=== PATIENT | female | born 1970 | race Caucasian/White ===

== ENCOUNTER 2017-02-22 12:48 | Emergency (ER) | payer SELFPAY ==
[~2017-02-22] VITALS: Ht 160 cm; Wt 52.0 kg
[~2017-02-22 12:48] MED LIST: IBUP800 PO; NAPR220T95 PO
[2017-02-22 12:49] VITALS: BP 109/73; PULSE 102; RESP 20; TEMP 97.9; O2SAT 98
--- NOTE | 2017-02-22 12:53 | PD ---
Physical Exam Date Seen by Provider: Feb 22, 2017 Time Seen by Provider: 12:52 Narrative 46 yo female here for right shoulder pain and chest pain on right. has had this since monday. Right chest pains going on for months. Hurts to move the shoulder. Tingling and numbness to the right arm. Pain is 8/10. Nothing makes it better. No trauma Vitals are stable in triage. Awaiting bed placement. Data Data Last Documented VS Vital Signs Date Time Temp Pulse Resp B/P Pulse Ox O2 Delivery O2 Flow Rate FiO2 02/22/17 12:49 97.9 102 20 109/73 98 Room Air [facility] Medical Record Reviewed: Yes Supervised Visit with EILEEN: No Td Beard Feb 22, 2017 12:53
[2017-02-22 12:57] VITALS: BP 120/62; PULSE 98; RESP 16; O2SAT 96
--- NOTE | 2017-02-22 13:36 | PD ---
HPI Chief Complaint: Cardiac Complaint Time Seen by Provider: 13:00 Travel History International Travel<30 days: No Contact w/Intl Traveler<30days: No Traveled to known affect area: No History of Present Illness HPI This is a 46-year-old female with a history of tobacco use, who presents today with complaints of right sided neck shoulder and arm pain since Monday. The patient reports the pain as sharp and stabbing. She reports it radiates down to her elbow area. She states that today she started feeling some tingling in her hand which brought her here. Patient also reports several months of right sided chest wall pain. She states it comes and goes. She denies any exertional component to it. She states that it lasts for up to a minute at worst. There is no shortness of breath. Patient states that about a month ago she had a cough. She denies a cough this time. As no reported fevers, chills. She states that she does not see doctors because she cannot afford to see one. He has no idea whether she has high cholesterol, diabetes or high blood pressure. Her blood pressure was noted to be normal here. She smokes one pack of cigarettes a day. PFSH Past Medical History Cardiovascular Problems: Yes Diminished Hearing: No Immunizations Current: No Tetanus Vaccination: < 5 Years Influenza Vaccination: No ?: Not Past Surgical History Section: Yes (X4) Gynecologic Surgery: Yes (C SECTIONS X4) Hysterectomy: No Social History Alcohol Use: Yes (OCCU) Tobacco Use: Yes (DAILY, [employer]) Substance Use: No Allergies-Medications (Allergen,Severity, Reaction): Coded Allergies: Milk (Verified Allergy, Severe, CANT BREATHE, 02/13/14) Reported Meds & Prescriptions Reported Meds & Active Scripts Active Medrol Dosepak (Methylprednisolone) 4 Mg Dspk 4 Mg PO DIRECTED Per Pharmacist direction Flexeril (Cyclobenzaprine HCl) 5 Mg Tab 5 Mg PO TID Reported Aleve (Naproxen Sodium) 220 Mg Tab 220 Mg PO BID Motrin 800 Mg Tab (Ibuprofen) 800 Mg Tab 800 Mg PO Q8 PRN Review of Systems Except as stated in HPI: all other systems reviewed are Neg General / Constitutional: No: Fever, Chills HENT: Positive: Neck Pain, No: Headaches, Vertigo, Lightheadedness Cardiovascular: Positive: Chest Pain or Discomfort (right sided. She reports it as a pressure and sharp at times. It comes and goes.), No: Palpitations Respiratory: No: Cough (one month ago,, not now.), Shortness of Breath, Pleuritic Pain Gastrointestinal: No: Nausea, Vomiting Genitourinary: No: Frequency, Dysuria Musculoskeletal: Positive: Pain (right lateral neck, right shoulder and right upper arm.), No: Weakness, Edema Neurologic: Positive: Sensory Disturbance (numbness and tingling of her right forearm and hand.), No: Weakness, Dizziness, Headache Physical Exam Narrative GENERAL: Well-developed well-nourished female in no acute respiratory distress. SKIN: Focused skin assessment warm/dry. HEAD: Atraumatic. Normocephalic. EYES: Pupils equal and round. No scleral icterus. No injection or drainage. ENT: No nasal bleeding or discharge. Mucous membranes pink and moist. NECK: Trachea midline. Supple. Patient has subjective tenderness in the paraspinous distribution of C5-C6 on the right side of the neck. There is no posterior spinous process tenderness. CARDIOVASCULAR: Regular rate and rhythm. No murmur appreciated. There is what appears to be a 3 x 2 cm lipoma on her anterior chest wall. It is squishy and mobile. It does not appear to be fixed. RESPIRATORY: No accessory muscle use. Clear to auscultation. Breath sounds equal bilaterally. GASTROINTESTINAL: Abdomen soft, non-tender, nondistended. MUSCULOSKELETAL: No obvious deformities. No clubbing. No cyanosis. No edema. NEUROLOGICAL: Awake and alert. No obvious cranial nerve deficits. Motor grossly within normal limits. Normal speech. PSYCHIATRIC: Appropriate mood and affect; insight and judgment normal. Data Data Last Documented VS Vital Signs Date Time Temp Pulse Resp B/P Pulse Ox O2 Delivery O2 Flow Rate FiO2 02/22/17 15:18 72 16 115/69 98 Room Air 02/22/17 12:49 97.9 Orders Electrocardiogram (02/22/17 13:21) Complete Blood Count With Diff (02/22/17 13:21) Comprehensive Metabolic Panel (02/22/17 13:21) Ckmb (Isoenzyme) Profile (02/22/17 13:21) Troponin I (02/22/17 13:21) Chest, Pa & Lat (02/22/17 13:21) Spine, Cervical - Ltd (Ap&Lat) (02/22/17 13:21) Iv Access Insert/Monitor (02/22/17 13:21) Ecg Monitoring (02/22/17 13:21) Oximetry (02/22/17 13:21) Ketorolac Inj (Toradol Inj) (02/22/17 15:00) Methylprednisolone So Succ Inj (Solumedr (02/22/17 15:00) Support Splint (02/22/17 15:34) Labs Laboratory Tests Test 02/22/17 13:00 White Blood Count 8.7 TH/MM3 Red Blood Count 4.70 MIL/MM3 Hemoglobin 14.6 GM/DL Hematocrit 42.8 % Mean Corpuscular Volume 91.1 FL Mean Corpuscular Hemoglobin 31.1 PG Mean Corpuscular Hemoglobin 34.1 % Concent Red Cell Distribution Width 14.0 % Platelet Count 256 TH/MM3 Mean Platelet Volume 8.4 FL Neutrophils (%) (Auto) 65.2 % Lymphocytes (%) (Auto) 23.4 % Monocytes (%) (Auto) 7.9 % Eosinophils (%) (Auto) 3.2 % Basophils (%) (Auto) 0.3 % Neutrophils # (Auto) 5.6 TH/MM3 Lymphocytes # (Auto) 2.0 TH/MM3 Monocytes # (Auto) 0.7 TH/MM3 Eosinophils # (Auto) 0.3 TH/MM3 Basophils # (Auto) 0.0 TH/MM3 CBC Comment DIFF FINAL Differential Comment Sodium Level 144 MEQ/L Potassium Level 3.9 MEQ/L Chloride Level 111 MEQ/L Carbon Dioxide Level 27.6 MEQ/L Anion Gap 5 MEQ/L Blood Urea Nitrogen 13 MG/DL Creatinine 0.71 MG/DL Estimat Glomerular Filtration 88 ML/MIN Rate Random Glucose 87 MG/DL Calcium Level 8.9 MG/DL Total Bilirubin 0.5 MG/DL Aspartate Amino Transf 11 U/L (AST/SGOT) Alanine Aminotransferase 14 U/L (ALT/SGPT) Alkaline Phosphatase 69 U/L Total Creatine Kinase 42 U/L Troponin I LESS THAN 0.02 NG/ML Total Protein 7.4 GM/DL Albumin 3.4 GM/DL [facility] Medical Decision Making Medical Screen Exam Complete: Yes Emergency Medical Condition: Yes Differential Diagnosis Cervical strain versus cervical radiculopathy versus atypical ACS Narrative Course 46-year-old female presents with right sided neck pain with radiation to her right upper extremity. Patient also reports some tingling in her right upper extremity. The patient has no palpable cords. There is no edema. The pain seems to radiate from her C4-C5 distribution. X-ray of the cervical spine shows degenerative disc disease at C4-C5 C5-C6 C6-C7. There is no evidence of step-off. The patient has no weakness on exam. EKG and cardiac enzymes are within normal limits. Chest x-ray shows no evidence of acute findings. I informed patient this is likely a "pinched nerve". She has no focal weakness. She'll be treated with a Medrol Dosepak and Flexeril. She is instructed to use Motrin [id number] 400-600 mg every 8 hours for the next 5 days. She will be given information on the [place] [facility]. Diagnosis Primary Impression: Cervical radiculopathy Additional Impression: Atypical chest pain Additional Instructions: Ibuprofen 400-600 mg every 8 hours 3-4 days. Take with food. Wear arm sling for comfort. Avoid overhead lifting. Med/Other Pt SpecificInfo: Prescription(s) given Scripts Methylprednisolone Dosepak (Medrol Dosepak)4 Mg Dspk4 Mg PO DIRECTED #1 DSPK Ref 0 Per Pharmacist direction Prov:Mohamud Velasco MD 02/22/17 Cyclobenzaprine (Flexeril)5 Mg Tab5 Mg PO TID #15 TAB Ref 0 Prov:Mohamud Velasco MD 02/22/17 Disposition: 01 DISCHARGE HOME Condition: Stable Mohamud Velasco MD Feb 22, 2017 13:36
--- NOTE | 2017-02-22 13:53 | RADRPT ---
EXAM DATE/TIME: 02/22/2017 13:43 [facility] COMPARISON: No previous studies available for comparison. INDICATIONS : Chest tightness. MEDICAL HISTORY : None. SURGICAL HISTORY : None. ENCOUNTER: Initial ACUITY: 4 - 6 days PAIN SCORE: 3/10 LOCATION: Bilateral chest FINDINGS: PA and lateral views of the chest demonstrate the lungs to be symmetrically aerated without evidence of mass, infiltrate or effusion. The cardiomediastinal contours are unremarkable. Osseous structure s are intact. CONCLUSION: No acute disease. Ernie Watters MD FACR on February 22, 2017 at 13:51 Board Certified Radiologist. This report was verified electronically.
--- NOTE | 2017-02-22 13:55 | RADRPT ---
EXAM DATE/TIME: 02/22/2017 13:45 [facility] COMPARISON: No previous studies available for comparison. INDICATIONS : Right sided neck pain. MEDICAL HISTORY : Radiculopathy SURGICAL HISTORY : None. ENCOUNTER: Initial ACUITY: 4 - 6 days PAIN SCORE: 8/10 LOCATION: Right neck FINDINGS: AP, lateral, and open mouth odontoid views were obtained. There is moderate to severe degenerative sp ondylosis of the cervical spine most prominently at C4-5, C5-6, and C6-7 with significant disc space narrowing and anterior osteophyte formation. There is resultant loss of normal cervical lordosis alth ough sagittal alignment is maintained. Vertebral body heights appear intact. The dens appears intact. There is a normal C1-2 relationship. No significant prevertebral soft tissue swelling. Visualized carolyn ng apices are clear. CONCLUSION: 1. Moderate to severe multilevel degenerative spondylosis of the cervical spine most prominently at C 4-5, C5-6, and C6-7. Manolo Leblanc MD on February 22, 2017 at 13:51 Board Certified Radiologist. This report was verified electronically.
[2017-02-22 14:16] LABS: AUTOMATED NEUTROPHIL # 5.6 TH/MM3 (1.8-7.7); BASOPHIL % 0.3 % (0.0-2.0); EOSINOPHIL # 0.3 TH/MM3 (0-0.4); EOSINOPHIL % 3.2 % (0.0-4.0); HEMATOCRIT 42.8 % (35.0-46.0); HEMO FLAGS DIFF FINAL; LYMPH % 23.4 % (9.0-44.0); MEAN CELL VOLUME 91.1 FL (80.0-100.0); MEAN CORPUSCULAR HEMOGLOBIN 31.1 PG (27.0-34.0); MEAN CORPUSCULAR HGB CONC 34.1 % (32.0-36.0); MONO % 7.9 % (0.0-8.0); NEUT % 65.2 % (16.0-70.0); PLATELET COUNT 256 TH/MM3 (150-450); WHITE BLOOD COUNT 8.7 TH/MM3 (4.0-11.0)
[2017-02-22 14:30] LABS: ALT (GPT) 14 U/L (10-53); ANION GAP 5 MEQ/L (5-15); AST (GOT) 11 U/L (15-37); BICARBONATE 27.6 MEQ/L (21.0-32.0); BLOOD UREA NITROGEN 13 MG/DL (7-18); CHLORIDE 111 MEQ/L (98-107); GLOMERULAR FILTRATION RATE 88 ML/MIN (>89); POTASSIUM 3.9 MEQ/L (3.5-5.1); SODIUM (NA) 144 MEQ/L (136-145)
[2017-02-22 14:31] LABS: ALKALINE PHOSPHATASE 69 U/L (45-117); TOTAL BILIRUBIN ADULT 0.5 MG/DL (0.2-1.0)
[2017-02-22 14:32] LABS: CREATINE KINASE 42 U/L (26-192)
[2017-02-22] MEDS ORDERED: CYCL5TAB PO (14:58)
[2017-02-22] MEDS ORDERED: MEDR4PAK PO (14:58)
[2017-02-22] MEDS ORDERED: methylPREDNISolone SOD SUCC 125 MG/2 ML VIAL IV PUSH ONE (15:00)
[2017-02-22] MEDS ORDERED: KETOROLAC TROMETHAMINE 30 MG/ML (IVP) VIAL IV PUSH ONE (15:00)
[2017-02-22 15:18] VITALS: BP 115/69; PULSE 72; RESP 16; O2SAT 98
--- NOTE | 2017-02-23 08:03 | EKG ---
Date Performed: 02/22/2017 Time Performed: 15:30:12 PTAGE: 46 years EKG: Sinus rhythm NORMAL ECG PREVIOUS TRACING : 02/19/2013 11.47 DOCTOR: Ronny Zuñiga Interpretating Date/Time 02/23/2017 07:57:54
== END 2017-02-22 15:56 | disposition home or self-care (01) ==
LOC: NEPC 12:48
DX: M54.12 Radiculopathy, cervical region (principal); M25.511 Pain in right shoulder; R07.89 Other chest pain; F17.200 Nicotine dependence, unspecified, uncomplicated; Z79.899 Other long term (current) drug therapy
CPT/HCPCS: 29240; 71020; 72040; 80053; 82550; 84484; 85025; 93005; 96374; 96375; 99285; J1885; J2930

== ENCOUNTER 2017-08-03 09:31 | Emergency (ER) | payer SELFPAY ==
[~2017-08-03] VITALS: Ht 160 cm; Wt 54.9 kg
[~2017-08-03 09:31] MED LIST changes: +CYCL5TAB PO; +MEDR4PAK PO
[2017-08-03 09:33] VITALS: BP 137/78; PULSE 83; RESP 16; TEMP 98.5; O2SAT 98
[2017-08-03 09:56] LABS: GLUCOSE,URINE NEG (NEG); KETONE, URINE NEG (NEG); NITRITE,URINE NEG (NEG); PH, URINE 5.5 (5.0-8.5)
[2017-08-03] MEDS ORDERED: ALUMINUM/MAGNESIUM/SIMETH 30 ML CUP PO ONE (10:00)
[2017-08-03] MEDS ORDERED: PANTOPRAZOLE SOD 40 MG DELAYED RELEASE TAB PO ONE (10:00)
--- NOTE | 2017-08-03 10:01 | PD ---
HPI Chief Complaint: Abdominal Pain Time Seen by Provider: 09:40 Travel History International Travel<30 days: No Contact w/Intl Traveler<30days: No Traveled to known affect area: No History of Present Illness HPI This 47-year-old female is complaining of pain in her left ribs. She has been having this pain for about 2 months. She says is aggravated when she eats something. the pain is constant. She says she has tried antiacids without much response. She does say that she takes about 4 tablets of ibuprofen every 4 -6 hours for the past 4 years because of severe hip pain. She has been told she needs a hip replacement but does not have insurance and has not been able to get any thing done. PFSH Past Medical History Cardiovascular Problems: Yes Diminished Hearing: No Immunizations Current: No Influenza Vaccination: No ?: Not LMP: menapause Menopausal: Yes Past Surgical History Surgical History: No Previous Surgery Section: Yes (X4) Gynecologic Surgery: Yes (C SECTIONS X4) Hysterectomy: No Social History Alcohol Use: Yes (OCCU) Tobacco Use: Yes (1 PPD) Substance Use: No Allergies-Medications (Allergen,Severity, Reaction): Coded Allergies: milk (Unverified Allergy, Severe, CANT BREATHE, 08/03/17) Reported Meds & Prescriptions Reported Meds & Active Scripts Active No Active Prescriptions or Reported Medications Review of Systems General / Constitutional: No: Fever, Chills Eyes: No: Diploplia, Blurred Vision HENT: No: Headaches Cardiovascular: No: Chest Pain or Discomfort, Palpitations Respiratory: No: Cough, Shortness of Breath Gastrointestinal: Positive: Abdominal Pain Genitourinary: No: Urgency, Frequency Musculoskeletal: Positive: Arthralgias, Pain Skin: No Rash, No Itching Neurologic: No: Weakness, Dizziness Physical Exam Narrative GENERAL: Well-developed female SKIN: Focused skin assessment warm/dry. HEAD: Atraumatic. Normocephalic. EYES: Pupils equal and round. No scleral icterus. No injection or drainage. ENT: No nasal bleeding or discharge. Mucous membranes pink and moist. NECK: Trachea midline. No JVD. CARDIOVASCULAR: Regular rate and rhythm. No murmur appreciated. RESPIRATORY: No accessory muscle use. Clear to auscultation. Breath sounds equal bilaterally. GASTROINTESTINAL: Abdomen soft, there is epigastric tenderness, nondistended. Hepatic and splenic margins not palpable. MUSCULOSKELETAL: No obvious deformities. No clubbing. No cyanosis. No edema. NEUROLOGICAL: Awake and alert. No obvious cranial nerve deficits. Motor grossly within normal limits. Normal speech. PSYCHIATRIC: Appropriate mood and affect; insight and judgment normal. Data Data Last Documented VS Vital Signs Date Time Temp Pulse Resp B/P (MAP) Pulse Ox O2 Delivery O2 Flow Rate FiO2 08/03/17 09:33 98.5 83 16 137/78 (97) 98 Orders Orders Urinalysis - C+S If Indicated (08/03/17 09:36) Complete Blood Count With Diff (08/03/17 09:53) Comprehensive Metabolic Panel (08/03/17 09:53) Lipase (08/03/17 09:53) Al-Mag Hy-Si 40-40-4 Mg/Ml Liq (Mag-Al P (08/03/17 10:00) Pantoprazole (Protonix) (08/03/17 10:00) Labs Laboratory Tests Test 08/03/17 09:40 08/03/17 10:09 Urine Collection Type CLEAN CATCH Urine Color STRAW Urine Turbidity CLEAR Urine pH 5.5 Urine Specific [place] 1.003 Urine Protein NEG mg/dL Urine Glucose (UA) NEG mg/dL Urine Ketones NEG mg/dL Urine Occult Blood TRACE Urine Nitrite NEG Urine Bilirubin NEG Urine Leukocyte Esterase TRACE Urine RBC 0-3 /hpf Urine Squamous Epithelial Cells 0-5 /hpf Microscopic Urinalysis Comment CULT NOT INDICATED Urine Collection Time 09:40 White Blood Count 7.2 TH/MM3 Red Blood Count 4.82 MIL/MM3 Hemoglobin 14.3 GM/DL Hematocrit 44.2 % Mean Corpuscular Volume 91.7 FL Mean Corpuscular Hemoglobin 29.6 PG Mean Corpuscular Hemoglobin Concent 32.3 % Red Cell Distribution Width 12.9 % Platelet Count 274 TH/MM3 Mean Platelet Volume 7.8 FL Neutrophils (%) (Auto) 57.1 % Lymphocytes (%) (Auto) 31.9 % Monocytes (%) (Auto) 5.8 % Eosinophils (%) (Auto) 4.7 % Basophils (%) (Auto) 0.5 % Neutrophils # (Auto) 4.2 TH/MM3 Lymphocytes # (Auto) 2.3 TH/MM3 Monocytes # (Auto) 0.4 TH/MM3 Eosinophils # (Auto) 0.3 TH/MM3 Basophils # (Auto) 0.0 TH/MM3 CBC Comment DIFF FINAL Differential Comment Blood Urea Nitrogen 17 MG/DL Creatinine 0.63 MG/DL Random Glucose 87 MG/DL Total Protein 7.0 GM/DL Albumin 3.4 GM/DL Calcium Level 8.7 MG/DL Alkaline Phosphatase 68 U/L Aspartate Amino Transf (AST/SGOT) 15 U/L Alanine Aminotransferase (ALT/SGPT) 17 U/L Total Bilirubin 0.3 MG/DL Sodium Level 141 MEQ/L Potassium Level 3.8 MEQ/L Chloride Level 110 MEQ/L Carbon Dioxide Level 23.0 MEQ/L Anion Gap 8 MEQ/L Estimat Glomerular Filtration Rate 101 ML/MIN Lipase 141 U/L MDM Medical Decision Making Medical Screen Exam Complete: Yes Emergency Medical Condition: Yes Medical Record Reviewed: Yes Differential Diagnosis Differential includes gastritis, pancreatitis Narrative Course Lab work is unremarkable. I believe the patient has gastritis due to her excessive use of anti-inflammatory medication. I have cautioned her that she needs to cut back on the ibuprofen. I will prescribe some tramadol for her to use for her hip pain in the hopes of sparing the ibuprofen. Diagnosis Primary Impression: Gastritis due to nonsteroidal anti-inflammatory drug (NSAID) Scripts Tramadol (Tramadol) 50 Mg Tab 50 MG PO Q6H Y for PAIN, #30 TAB 0 Refills Prov: Ethan Vargas MD 08/03/17 Disposition: 01 DISCHARGE HOME Condition: Stable Ethan Vargas MD Aug 03, 2017 10:01
[2017-08-03 10:06] LABS: BLOOD, URINE TRACE (NEG)
[2017-08-03 10:07] LABS: METHOD OF COLLECTION CLEAN CATCH; URINE COLOR STRAW (YELLW/STRAW)
[2017-08-03 10:08] LABS: COMMENT (UR) CULT NOT INDICATED; CULTURE IF INDICATED CULT NOT INDICATED; RBC, URINE 0-3 /hpf (0-3); SQUAMOUS EPITHELIAL CELL URINE 0-5 /hpf (0-5)
[2017-08-03 10:13] LABS: AUTOMATED NEUTROPHIL # 4.2 TH/MM3 (1.8-7.7); BASOPHIL % 0.5 % (0.0-2.0); EOSINOPHIL # 0.3 TH/MM3 (0-0.4); EOSINOPHIL % 4.7 % (0.0-4.0); HEMATOCRIT 44.2 % (35.0-46.0); HEMO FLAGS DIFF FINAL; LYMPH % 31.9 % (9.0-44.0); LYMPHOCYTE # 2.3 TH/MM3 (1.0-4.8); MEAN CELL VOLUME 91.7 FL (80.0-100.0); MEAN CORPUSCULAR HEMOGLOBIN 29.6 PG (27.0-34.0); MEAN CORPUSCULAR HGB CONC 32.3 % (32.0-36.0); MONO % 5.8 % (0.0-8.0); NEUT % 57.1 % (16.0-70.0); PLATELET COUNT 274 TH/MM3 (150-450); RED BLOOD COUNT 4.82 MIL/MM3 (4.00-5.30); RED CELL DISTRIBUTION WIDTH 12.9 % (11.6-17.2); WHITE BLOOD COUNT 7.2 TH/MM3 (4.0-11.0)
[2017-08-03 10:22] LABS: CHLORIDE 110 MEQ/L (98-107); POTASSIUM 3.8 MEQ/L (3.5-5.1); SODIUM (NA) 141 MEQ/L (136-145)
[2017-08-03 10:26] LABS: ANION GAP 8 MEQ/L (5-15); BLOOD UREA NITROGEN 17 MG/DL (7-18)
[2017-08-03 10:29] LABS: ALT (GPT) 17 U/L (10-53); AST (GOT) 15 U/L (15-37); GLOMERULAR FILTRATION RATE 101 ML/MIN (>89)
[2017-08-03 10:31] LABS: TOTAL BILIRUBIN ADULT 0.3 MG/DL (0.2-1.0)
[2017-08-03 10:32] LABS: ALKALINE PHOSPHATASE 68 U/L (45-117)
[2017-08-03] MEDS ORDERED: TRAM50TA PO (10:38)
== END 2017-08-03 10:56 | disposition home or self-care (01) ==
LOC: PHED 09:31
DX: K29.70 Gastritis, unspecified, without bleeding (principal); T39.395A Adverse effect of other nonsteroidal anti-inflammatory drugs [NSAID], initial encounter; F17.200 Nicotine dependence, unspecified, uncomplicated
CPT/HCPCS: 80053; 81001; 83690; 85025; 99283

== ENCOUNTER 2017-08-07 11:49 | Emergency (ER) | payer OTHER ==
[~2017-08-07 11:49] MED LIST changes: -CYCL5TAB PO; -IBUP800 PO; -MEDR4PAK PO; -NAPR220T95 PO; +TRAM50TA PO
[2017-08-07 11:51] VITALS: BP 121/65; PULSE 98; RESP 16; TEMP 98.7; O2SAT 100
[2017-08-07] MEDS ORDERED: SODIUM CHLOR 0.9% 1000 ML INJ 1,000 ML IV SCH (12:00)
[2017-08-07] MEDS ORDERED: SODIUM CHLORIDE 0.9% FLUSH 10 ML FLUSH IV FLUSH PRN (12:00)
[2017-08-07] MEDS ORDERED: ALUMINUM/MAGNESIUM/SIMETH 30 ML CUP PO ONE (12:15)
[2017-08-07] MEDS ORDERED: ONDANSETRON HCL 4 MG/2 ML VIAL IVP ONE (12:15)
[2017-08-07] MEDS ORDERED: FAMOTIDINE 20 MG/2 ML VIAL IV PUSH ONE (12:15)
[2017-08-07] MEDS ORDERED: LIDOCAINE VISCOUS 2% SOLN 15 ML UDC PO ONE (12:15)
--- NOTE | 2017-08-07 12:19 | PD ---
HPI Chief Complaint: Abdominal Pain Time Seen by Provider: 11:58 Travel History International Travel<30 days: No Contact w/Intl Traveler<30days: No Traveled to known affect area: No History of Present Illness HPI Patient is a 47-year-old female who presents to emergency room with multiple complaints. Patient reports that she has had left upper abdominal pain which has been ongoing for the past 2 months. Reports that symptoms are worse when she eats, she has been taking ibuprofen for relief of her hip pain as she needs a hip replacement but does not have insurance to get this done. Patient reports that she was seen at [facility] on August 03, 2017 for similar symptoms and was diagnosed with gastritis due to excessive anti- inflammatory ingestion. Patient reports that she has not been able to follow up with a solderer dipper as she does not have insurance. Patient requesting to see a solderer dipper while in the ER. Patient reports that she has been feeling nauseous, reports no vomiting. Reports no chest pain/sob. No other c/o at this time. PFSH Past Medical History Cardiovascular Problems: Yes Diminished Hearing: No Immunizations Current: No ?: Not Menopausal: Yes Past Surgical History Section: Yes (X4) Gynecologic Surgery: Yes (C SECTIONS X4) Hysterectomy: No Social History Alcohol Use: Yes (OCCU) Tobacco Use: Yes (1 PPD) Substance Use: No Allergies-Medications (Allergen,Severity, Reaction): Coded Allergies: milk (Unverified Allergy, Severe, CANT BREATHE, 08/03/17) Reported Meds & Prescriptions Reported Meds & Active Scripts Active Review of Systems General / Constitutional: No: Fever, Chills Eyes: No: Visual changes HENT: No: Headaches Cardiovascular: No: Chest Pain or Discomfort Respiratory: No: Shortness of Breath Gastrointestinal: Positive: Nausea, Vomiting, Abdominal Pain Genitourinary: No: Dysuria Musculoskeletal: No: Pain Skin: No Rash Neurologic: No: Weakness Psychiatric: No: Depression Endocrine: No: Polydipsia Hematologic/Lymphatic: No: Easy Bruising Physical Exam Narrative GENERAL: mild distress SKIN: Focused skin assessment warm/dry. HEAD: Atraumatic. Normocephalic. EYES: Pupils equal and round. No scleral icterus. No injection or drainage. ENT: No nasal bleeding or discharge. Mucous membranes pink and moist. NECK: Trachea midline. No JVD. CARDIOVASCULAR: Regular rate and rhythm. No murmur appreciated. RESPIRATORY: No accessory muscle use. Clear to auscultation. Breath sounds equal bilaterally. GASTROINTESTINAL: Abdomen soft, increased tenderness to RUQ with no rebound or guarding, nondistended. Hepatic and splenic margins not palpable. MUSCULOSKELETAL: No obvious deformities. No clubbing. No cyanosis. No edema. NEUROLOGICAL: Awake and alert. No obvious cranial nerve deficits. Motor grossly within normal limits. Normal speech. PSYCHIATRIC: Appropriate mood and affect; insight and judgment normal. Data Data Last Documented VS Vital Signs Date Time Temp Pulse Resp B/P (MAP) Pulse Ox O2 Delivery O2 Flow Rate FiO2 08/07/17 11:51 98.7 98 16 121/65 (83) 100 Orders Orders Complete Blood Count With Diff (08/07/17 12:00) Comprehensive Metabolic Panel (08/07/17 12:00) Prothrombin Time / Inr (Pt) (08/07/17 12:00) Act Partial Throm Time (Ptt) (08/07/17 12:00) Urinalysis - C+S If Indicated (08/07/17 12:00) Iv Access Insert/Monitor (08/07/17 12:00) Ecg Monitoring (08/07/17 12:00) Oximetry (08/07/17 12:00) Sodium Chlor 0.9% 1000 Ml Inj (Ns 1000 M (08/07/17 12:00) Sodium Chloride 0.9% Flush (Ns Flush) (08/07/17 12:00) Ed Urine Pregnancytest Poc (08/07/17 12:00) Ct Abd/Pel W Iv Contrast(Rout) (08/07/17 12:14) Ondansetron Inj (Zofran Inj) (08/07/17 12:15) Famotidine Inj (Pepcid Inj) (08/07/17 12:15) Al-Mag Hy-Si 40-40-4 Mg/Ml Liq (Mag-Al P (08/07/17 12:15) Lidocaine 2% Viscous (Xylocaine 2% Visco (08/07/17 12:15) Iohexol 350 Inj (Omnipaque 350 Inj) (08/07/17 13:51) Labs Laboratory Tests Test 08/07/17 12:34 White Blood Count 7.0 TH/MM3 Red Blood Count 4.80 MIL/MM3 Hemoglobin 14.7 GM/DL Hematocrit 44.3 % Mean Corpuscular Volume 92.3 FL Mean Corpuscular Hemoglobin 30.7 PG Mean Corpuscular Hemoglobin Concent 33.2 % Red Cell Distribution Width 13.3 % Platelet Count 252 TH/MM3 Mean Platelet Volume 8.3 FL Neutrophils (%) (Auto) 56.9 % Lymphocytes (%) (Auto) 32.5 % Monocytes (%) (Auto) 6.7 % Eosinophils (%) (Auto) 3.5 % Basophils (%) (Auto) 0.4 % Neutrophils # (Auto) 4.0 TH/MM3 Lymphocytes # (Auto) 2.3 TH/MM3 Monocytes # (Auto) 0.5 TH/MM3 Eosinophils # (Auto) 0.2 TH/MM3 Basophils # (Auto) 0.0 TH/MM3 CBC Comment DIFF FINAL Differential Comment Prothrombin Time 11.6 SEC Prothromb Time International Ratio 1.1 RATIO Activated Partial Thromboplast Time 27.7 SEC Urine Color COLORLESS Urine Turbidity CLEAR Urine pH 6.5 Urine Specific [place] 1.003 Urine Protein NEG mg/dL Urine Glucose (UA) NEG mg/dL Urine Ketones NEG mg/dL Urine Occult Blood NEG Urine Nitrite NEG Urine Bilirubin NEG Urine Urobilinogen LESS THAN 2.0 MG/DL Urine Leukocyte Esterase TRACE Urine RBC 2 /hpf Urine WBC LESS THAN 1 /hpf Urine Squamous Epithelial Cells 1 /hpf Microscopic Urinalysis Comment CULT NOT INDICATED Blood Urea Nitrogen 11 MG/DL Creatinine 0.69 MG/DL Random Glucose 88 MG/DL Total Protein 7.1 GM/DL Albumin 3.7 GM/DL Calcium Level 8.7 MG/DL Alkaline Phosphatase 72 U/L Aspartate Amino Transf (AST/SGOT) 8 U/L Alanine Aminotransferase (ALT/SGPT) 16 U/L Total Bilirubin 0.4 MG/DL Sodium Level 142 MEQ/L Potassium Level 3.7 MEQ/L Chloride Level 108 MEQ/L Carbon Dioxide Level 27.3 MEQ/L Anion Gap 7 MEQ/L Estimat Glomerular Filtration Rate 91 ML/MIN [facility] Medical Decision Making Medical Screen Exam Complete: Yes Emergency Medical Condition: Yes Medical Record Reviewed: Yes Interpretation(s) Vital Signs Date Time Temp Pulse Resp B/P (MAP) Pulse Ox O2 Delivery O2 Flow Rate FiO2 08/07/17 11:51 98.7 98 16 121/65 (83) 100 Differential Diagnosis Gastritis, gastroenteritis, gastric ulcer, electrolyte abnormality Narrative Course Patient is a 47-year-old female who presents to emergency room complaints of right upper quadrant abdominal pain has been ongoing for the past 2 months. Patient reports his symptoms are worse with eating, reports that she has been feeling nauseous has intermittent episodes when she vomits. Patient reports that she was seen at [facility] on July 04, 2017 and was diagnosed with gastritis. Reports that she could not follow up with a primary care doctor or specialist as she doesn't have insurance. During the course of the patients emergency department visit, the patients history, examination, and differential diagnosis were reviewed with the patient. The patient was placed on a cardiac rehabilitation program director with oximetry and frequent blood pressure monitoring. The patient had an IV access obtained and blood work sent for analysis. The patient was initially provided IV fluids, IV Zofran as well as GI Cocktail The patients laboratory studies were reviewed and remarkable for: CBC & BMP Diagram 08/07/17 12:34 Total Protein 7.1, Albumin 3.7, Calcium Level 8.7, Alkaline Phosphatase 72, Aspartate Amino Transf (AST/SGOT) 8 L, Alanine Aminotransferase (ALT/SGPT) 16, Total Bilirubin 0.4 Radiology studies were reviewed and remarkable for : Last Impressions Abdomen/Pelvis CT 08/07/17 1214 Signed Impressions: Service Date/Time: Monday, August 07, 2017 13:34 - CONCLUSION: 1. Probable 1.7 cm sebaceous type cyst in the right lower back/upper buttocks. 2. Bilateral adrenal nodules. Left nodule shows heterogeneous enhancement and I believe warrants further evaluation. MR imaging is recommended. 3. Diverticula disease of the descending and sigmoid colon without diverticulitis 4. S-shaped scoliosis of the thoracolumbar spine. Chalo Ochoa MD I reviewed all labs and all studies with patient in detail. Patient at this time suffers no emergency which requires admission to the hospital. Vital Signs Date Time Temp Pulse Resp B/P (MAP) Pulse Ox O2 Delivery O2 Flow Rate FiO2 08/07/17 11:51 98.7 98 16 121/65 (83) 100 Vital signs are stable. Hemoglobin 14.7, hematocrit 44.3 which is stable. Chemistry and LFTs are within normal limits. CT the abdomen pelvis does show some incidental findings including adrenal nodules and diverticuli as well as sebaceous cyst. A copy of her CT report was given to her discharge and all incidental findings reviewed with her. Patient understands that she will need to follow-up with solderer dipper patient. Patient will be given [facility] for follow up as she does not have pcp. Signs and symptoms of when to return to the ER was reviewed with patient in detail. Diagnosis Primary Impression: Abdominal pain Additional Impressions: Sebaceous cyst Adrenal nodule Diverticula of colon Referrals: Richie Le MD [facility] Patient Instructions: General Instructions Additional Instructions: Please provide patient with a copy of their lab work and studies at discharge* * Please follow up with your primary care doctor in 2-3 days Return to the ER if symptoms worsen or progress Return to the ER as needed Please follow up with Aircraft Worker as soon as possible Please a copy of your lab work and studies to your follow up appointment as you will need follow up on all incidental findings from today Disposition: 01 DISCHARGE HOME Condition: Stable Laisha Escalera DO Aug 07, 2017 12:19
[2017-08-07 12:58] LABS: BASOPHIL % 0.4 % (0.0-2.0); EOSINOPHIL # 0.2 TH/MM3 (0-0.4); EOSINOPHIL % 3.5 % (0.0-4.0); HEMATOCRIT 44.3 % (35.0-46.0); HEMOGLOBIN 14.7 GM/DL (11.6-15.3); LYMPH % 32.5 % (9.0-44.0); LYMPHOCYTE # 2.3 TH/MM3 (1.0-4.8); MEAN CELL VOLUME 92.3 FL (80.0-100.0); MEAN CORPUSCULAR HEMOGLOBIN 30.7 PG (27.0-34.0); MEAN CORPUSCULAR HGB CONC 33.2 % (32.0-36.0); MEAN PLATELET VOLUME 8.3 FL (7.0-11.0); MONO % 6.7 % (0.0-8.0); MONOCYTE # 0.5 TH/MM3 (0-0.9); NEUT % 56.9 % (16.0-70.0); PLATELET COUNT 252 TH/MM3 (150-450); RED CELL DISTRIBUTION WIDTH 13.3 % (11.6-17.2)
[2017-08-07 13:05] LABS: INTERNATIONAL NORMALIZED RATIO 1.1 RATIO; PROTHROMBIN TIME - PATIENT 11.6 SEC (9.8-11.6)
[2017-08-07 13:09] LABS: BILIRUBIN, URINE NEG (NEG); BLOOD, URINE NEG (NEG); GLUCOSE,URINE NEG (NEG); KETONE, URINE NEG (NEG); NITRITE,URINE NEG (NEG); PH, URINE 6.5 (5.0-8.5); SQUAMOUS EPITHELIAL CELL URINE 1 /hpf (0-5); URINE COLOR COLORLESS (YELLW/STRAW); URINE LEUKOCYTE ESTERASE TRACE (NEG)
[2017-08-07 13:12] LABS: ALBUMIN 3.7 GM/DL (3.4-5.0); ALT (GPT) 16 U/L (10-53); AST (GOT) 8 U/L (15-37); BICARBONATE 27.3 MEQ/L (21.0-32.0); BLOOD UREA NITROGEN 11 MG/DL (7-18); CALCIUM 8.7 MG/DL (8.5-10.1); CHLORIDE 108 MEQ/L (98-107); CREATININE 0.69 MG/DL (0.50-1.00); GLOMERULAR FILTRATION RATE 91 ML/MIN (>89); GLUCOSE,RANDOM 88 MG/DL (74-106); SODIUM (NA) 142 MEQ/L (136-145)
[2017-08-07 13:14] LABS: ALKALINE PHOSPHATASE 72 U/L (45-117); TOTAL BILIRUBIN ADULT 0.4 MG/DL (0.2-1.0); TOTAL PROTEIN 7.1 GM/DL (6.4-8.2)
[2017-08-07] MEDS ORDERED: IOHEXOL 350 MG/ML 10 ML VIAL (for RAD DIAG) IVCONTRAST ONE (13:51)
--- NOTE | 2017-08-07 15:18 | RADRPT ---
EXAM DATE/TIME: 08/07/2017 13:34 [place] COMPARISON: No previous studies available for comparison. INDICATIONS : Left sided abdomen pain for 2 months IV CONTRAST: 88 cc Omnipaque 350 (iohexol) IV ORAL CONTRAST: No oral contrast ingested. RADIATION DOSE: 6.64 CTDIvol (mGy) MEDICAL HISTORY : Cardiovascular disease. SURGICAL HISTORY : None. ENCOUNTER: Initial ACUITY: 2 months PAIN SCALE: 8/10 LOCATION: Left upper quadrant TECHNIQUE: Volumetric scanning of the abdomen and pelvis was performed. Using automated exposure control and ad justment of the mA and/or kV according to patient size, radiation dose was kept as low as reasonably achievable to obtain optimal diagnostic quality images. DICOM format image data is available electro nically for review and comparison. FINDINGS: LOWER LUNGS: The visualized lower lungs are clear. LIVER: Homogeneous density without lesion. There is no dilation of the biliary tree. No calcified gallston es. SPLEEN: Normal size without lesion. PANCREAS: Within normal limits. KIDNEYS: Normal in size and shape. There is no mass, stone or hydronephrosis. ADRENAL GLANDS: Nodules on both adrenals. This measures 1.4 cm on the right and 2.1 on the left. The left lesion show s heterogeneous enhancement. VASCULAR: There is no aortic aneurysm. BOWEL/MESENTERY: The stomach, small bowel, and colon demonstrate no acute abnormality. There is no free intraperitone al air or fluid. Diverticular disease of the descending and sigmoid colon without diverticulitis. ABDOMINAL WALL: 1.7 cm well-circumscribed low density lesion in the subcutaneous tissues of the upper right buttocks/ lower back. RETROPERITONEUM: There is no lymphadenopathy. BLADDER: No wall thickening or mass. REPRODUCTIVE: Within normal limits. INGUINAL: There is no lymphadenopathy or hernia. MUSCULOSKELETAL: Levoscoliosis of the lumbar spine. Otherwise intact. CONCLUSION: 1. Probable 1.7 cm sebaceous type cyst in the right lower back/upper buttocks. 2. Bilateral adrenal nodules. Left nodule shows heterogeneous enhancement and I believe warrants furt her evaluation. MR imaging is recommended. 3. Diverticula disease of the descending and sigmoid colon without diverticulitis 4. S-shaped scoliosis of the thoracolumbar spine. Chalo Ochoa MD on August 07, 2017 at 14:04 Board Certified Radiologist. This report was verified electronically.
== END 2017-08-07 16:47 | disposition home or self-care (01) ==
LOC: NEPD 11:49
DX: R10.12 Left upper quadrant pain (principal); L72.3 Sebaceous cyst; E27.8 Other specified disorders of adrenal gland; K57.30 Diverticulosis of large intestine without perforation or abscess without bleeding; Z72.0 Tobacco use
CPT/HCPCS: 74177; 80053; 81001; 84703; 85025; 85610; 85730; 96361; 96374; 96375; 99285; J2405; J7030; Q9967

== ENCOUNTER 2017-12-07 19:15 | Emergency (ER) | payer OTHER ==
[~2017-12-07] VITALS: Ht 160 cm; Wt 55.4 kg
[2017-12-07 19:23] VITALS: BP 139/75; PULSE 109; RESP 18; TEMP 98.4; O2SAT 96
--- NOTE | 2017-12-07 19:43 | PD ---
HPI Chief Complaint: Suicide Ideation/Attempt Time Seen by Provider: 19:29 Travel History International Travel<30 days: No Contact w/Intl Traveler<30days: No Traveled to known affect area: No History of Present Illness HPI Patient is a 47-year-old female who presents the emergency room with a friend for psychiatric evaluation. Patient reports that she is very sad, reports she that she is depressed, reports that she is suicidal. Reports over the past few days, she has been thinking about ways to commit suicide, patient reports that she is tired of living life and wants to end it. Patient reports that she occasionally drinks alcohol, does not use drugs. Reports that she has too many life stressors to deal with. Denies any recent ingestions of any toxic drugs PFSH Past Medical History Arthritis: Yes Cardiovascular Problems: Yes Diminished Hearing: No Immunizations Current: No ?: Not Menopausal: Yes Past Surgical History Section: Yes (X4) Gynecologic Surgery: Yes (C SECTIONS X4) Hysterectomy: No Social History Alcohol Use: Yes (OCCU) Tobacco Use: Yes (1 PPD) Substance Use: No Allergies-Medications (Allergen,Severity, Reaction): Coded Allergies: milk (Unverified Allergy, Severe, CANT BREATHE, 12/07/17) Reported Meds & Prescriptions Reported Meds & Active Scripts Active Reported [Stomach Medicine] Tab PO Review of Systems General / Constitutional: No: Fever Eyes: No: Visual changes HENT: No: Headaches Cardiovascular: No: Chest Pain or Discomfort Respiratory: No: Shortness of Breath Gastrointestinal: No: Abdominal Pain Genitourinary: No: Dysuria Musculoskeletal: No: Pain Skin: No Rash Neurologic: No: Weakness Psychiatric: Positive: Depression, Suicidal Ideations, Disorder of Thought, No : Anxiety, Substance Abuse, Homicidal Ideation Endocrine: No: Polydipsia Hematologic/Lymphatic: No: Easy Bruising Physical Exam Narrative GENERAL: NAD, nontoxic SKIN: Focused skin assessment warm/dry. HEAD: Atraumatic. Normocephalic. EYES: Pupils equal and round. No scleral icterus. No injection or drainage. ENT: No nasal bleeding or discharge. Mucous membranes pink and moist. NECK: Trachea midline. No JVD. CARDIOVASCULAR: Regular rate and rhythm. No murmur appreciated. RESPIRATORY: No accessory muscle use. Clear to auscultation. Breath sounds equal bilaterally. GASTROINTESTINAL: Abdomen soft, non-tender, nondistended. Hepatic and splenic margins not palpable. MUSCULOSKELETAL: No obvious deformities. No clubbing. No cyanosis. No edema. NEUROLOGICAL: Awake and alert. No obvious cranial nerve deficits. Motor grossly within normal limits. Normal speech. PSYCHIATRIC: anxious mood and affect; insight and judgment normal. +SI -HI Data Data Last Documented VS Vital Signs Date Time Temp Pulse Resp B/P (MAP) Pulse Ox O2 Delivery O2 Flow Rate FiO2 12/07/17 20:18 20 97 12/07/17 19:23 98.4 109 139/75 (96) Orders Orders Complete Blood Count With Diff (12/07/17 19:30) Comprehensive Metabolic Panel (12/07/17:30) Thyroid Stimulating Hormone (12/07/17:30) Psych Screen (12/07/17:30) Drug Screen, Random Urine (12/07/17:30) Alcohol (Ethanol) (12/07/17 19:30) Salicylates (Aspirin) (12/07/17 19:30) Tylenol (Acetaminophen) (12/07/17 19:30) Ed Urine Pregnancytest Poc (12/07/17 19:30) Labs Laboratory Tests Test 12/07/17 20:00 12/07/17 20:10 White Blood Count 7.3 TH/MM3 Red Blood Count 5.22 MIL/MM3 Hemoglobin 16.2 GM/DL Hematocrit 47.5 % Mean Corpuscular Volume 91.0 FL Mean Corpuscular Hemoglobin 31.0 PG Mean Corpuscular Hemoglobin Concent 34.1 % Red Cell Distribution Width 13.7 % Platelet Count 298 TH/MM3 Mean Platelet Volume 8.3 FL Neutrophils (%) (Auto) 55.6 % Lymphocytes (%) (Auto) 32.6 % Monocytes (%) (Auto) 5.4 % Eosinophils (%) (Auto) 4.5 % Basophils (%) (Auto) 1.9 % Neutrophils # (Auto) 4.1 TH/MM3 Lymphocytes # (Auto) 2.4 TH/MM3 Monocytes # (Auto) 0.4 TH/MM3 Eosinophils # (Auto) 0.3 TH/MM3 Basophils # (Auto) 0.1 TH/MM3 CBC Comment DIFF FINAL Differential Comment Blood Urea Nitrogen 15 MG/DL Creatinine 0.88 MG/DL Random Glucose 96 MG/DL Total Protein 7.7 GM/DL Albumin 3.8 GM/DL Calcium Level 8.5 MG/DL Alkaline Phosphatase 134 U/L Aspartate Amino Transf (AST/SGOT) 14 U/L Alanine Aminotransferase (ALT/SGPT) 19 U/L Total Bilirubin LESS THAN 0.1 MG/DL Sodium Level 142 MEQ/L Potassium Level 3.8 MEQ/L Chloride Level 110 MEQ/L Carbon Dioxide Level 24.3 MEQ/L Anion Gap 8 MEQ/L Estimat Glomerular Filtration Rate 69 ML/MIN Thyroid Stimulating Hormone 3rd Gen 0.754 uIU/ML Salicylates Level 3.6 MG/DL Acetaminophen Level LESS THAN 2.0 MCG/ML Ethyl Alcohol Level 138 MG/DL Urine Opiates Screen NEG Urine Barbiturates Screen NEG Urine Amphetamines Screen NEG Urine Benzodiazepines Screen NEG Urine Cocaine Screen POS Urine Cannabinoids Screen NEG MDM Medical Decision Making Medical Screen Exam Complete: Yes Emergency Medical Condition: Yes Medical Record Reviewed: Yes Interpretation(s) Vital Signs Date Time Temp Pulse Resp B/P (MAP) Pulse Ox O2 Delivery O2 Flow Rate FiO2 12/07/17 19:23 98.4 109 18 139/75 (96) 96 Differential Diagnosis depression, si Narrative Course Patient is a 47-year-old female who presents the emergency room with complaints of suicidal ideation with depression. Psychiatric screening labs will be ordered. Patient will be placed under Lemon act. Once medically cleared, patient will be transferred to [facility] for psychiatric evaluation. Laboratory Tests Test 12/07/17 20:00 12/07/17 20:10 White Blood Count 7.3 TH/MM3 (4.0-11.0) Red Blood Count 5.22 MIL/MM3 (4.00-5.30) Hemoglobin 16.2 GM/DL (11.6-15.3) Hematocrit 47.5 % (35.0-46.0) Mean Corpuscular Volume 91.0 FL (80.0-100.0) Mean Corpuscular Hemoglobin 31.0 PG (27.0-34.0) Mean Corpuscular Hemoglobin Concent 34.1 % (32.0-36.0) Red Cell Distribution Width 13.7 % (11.6-17.2) Platelet Count 298 TH/MM3 (150-450) Mean Platelet Volume 8.3 FL (7.0-11.0) Neutrophils (%) (Auto) 55.6 % (16.0-70.0) Lymphocytes (%) (Auto) 32.6 % (9.0-44.0) Monocytes (%) (Auto) 5.4 % (0.0-8.0) Eosinophils (%) (Auto) 4.5 % (0.0-4.0) Basophils (%) (Auto) 1.9 % (0.0-2.0) Neutrophils # (Auto) 4.1 TH/MM3 (1.8-7.7) Lymphocytes # (Auto) 2.4 TH/MM3 (1.0-4.8) Monocytes # (Auto) 0.4 TH/MM3 (0-0.9) Eosinophils # (Auto) 0.3 TH/MM3 (0-0.4) Basophils # (Auto) 0.1 TH/MM3 (0-0.2) CBC Comment DIFF FINAL Differential Comment Blood Urea Nitrogen 15 MG/DL (7-18) Creatinine 0.88 MG/DL (0.50-1.00) Random Glucose 96 MG/DL (74-106) Total Protein 7.7 GM/DL (6.4-8.2) Albumin 3.8 GM/DL (3.4-5.0) Calcium Level 8.5 MG/DL (8.5-10.1) Alkaline Phosphatase 134 U/L (45-117) Aspartate Amino Transf (AST/SGOT) 14 U/L (15-37) Alanine Aminotransferase (ALT/SGPT) 19 U/L (10-53) Total Bilirubin LESS THAN 0.1 MG/DL Sodium Level 142 MEQ/L (136-145) Potassium Level 3.8 MEQ/L (3.5-5.1) Chloride Level 110 MEQ/L (98-107) Carbon Dioxide Level 24.3 MEQ/L (21.0-32.0) Anion Gap 8 MEQ/L (5-15) Estimat Glomerular Filtration Rate 69 ML/MIN (>89) Thyroid Stimulating Hormone 3rd Gen 0.754 uIU/ML (0.358-3.740) Salicylates Level 3.6 MG/DL (2.8-20.0) Acetaminophen Level LESS THAN 2.0 MCG/ML Ethyl Alcohol Level 138 MG/DL (0-5) Urine Opiates Screen NEG (NEG) Urine Barbiturates Screen NEG (NEG) Urine Amphetamines Screen NEG (NEG) Urine Benzodiazepines Screen NEG (NEG) Urine Cocaine Screen POS (NEG) Urine Cannabinoids Screen NEG (NEG) Patient cleared for psychiatric screening. Diagnosis Primary Impression: Suicidal ideation Additional Impressions: Drug abuse Alcohol intoxication Laisha Escalera DO Dec 07, 2017 19:43
[2017-12-07 20:17] LABS: AUTOMATED NEUTROPHIL # 4.1 TH/MM3 (1.8-7.7); BASOPHIL # 0.1 TH/MM3 (0-0.2); BASOPHIL % 1.9 % (0.0-2.0); EOSINOPHIL # 0.3 TH/MM3 (0-0.4); EOSINOPHIL % 4.5 % (0.0-4.0); HEMATOCRIT 47.5 % (35.0-46.0); HEMOGLOBIN 16.2 GM/DL (11.6-15.3); LYMPH % 32.6 % (9.0-44.0); LYMPHOCYTE # 2.4 TH/MM3 (1.0-4.8); MEAN CORPUSCULAR HGB CONC 34.1 % (32.0-36.0); MEAN PLATELET VOLUME 8.3 FL (7.0-11.0); MONO % 5.4 % (0.0-8.0); MONOCYTE # 0.4 TH/MM3 (0-0.9); NEUT % 55.6 % (16.0-70.0); PLATELET COUNT 298 TH/MM3 (150-450); RED BLOOD COUNT 5.22 MIL/MM3 (4.00-5.30); RED CELL DISTRIBUTION WIDTH 13.7 % (11.6-17.2); WHITE BLOOD COUNT 7.3 TH/MM3 (4.0-11.0)
[2017-12-07 20:24] LABS: CHLORIDE 110 MEQ/L (98-107); SODIUM (NA) 142 MEQ/L (136-145)
[2017-12-07 20:28] LABS: ALBUMIN 3.8 GM/DL (3.4-5.0); BICARBONATE 24.3 MEQ/L (21.0-32.0); BLOOD UREA NITROGEN 15 MG/DL (7-18); CALCIUM 8.5 MG/DL (8.5-10.1); GLUCOSE,RANDOM 96 MG/DL (74-106)
[2017-12-07 20:31] LABS: ALT (GPT) 19 U/L (10-53); AST (GOT) 14 U/L (15-37); CREATININE 0.88 MG/DL (0.50-1.00); GLOMERULAR FILTRATION RATE 69 ML/MIN (>89)
[2017-12-07 20:33] LABS: TOTAL BILIRUBIN ADULT LESS THAN 0.1 MG/DL (0.2-1.0); TOTAL PROTEIN 7.7 GM/DL (6.4-8.2)
[2017-12-07 20:34] LABS: ALKALINE PHOSPHATASE 134 U/L (45-117)
[2017-12-07] MEDS ORDERED: STOMACH MEDICINE PO (20:40)
[2017-12-07 21:26] LABS: ACETAMINOPHEN LESS THAN 2.0 MCG/ML (10.0-30.0)
[2017-12-07 23:00] VITALS: BP 100/67
[2017-12-07] MEDS ORDERED: ANXIETY MED PO (23:11)
[2017-12-07] MEDS ORDERED: [UNRECOGNIZED DRUG - REMARK] PO (23:11)
[2017-12-07] MEDS ORDERED: ANTI DEPRESSANT MED PO (23:11)
--- NOTE | 2017-12-07 23:32 | PD ---
Physical Exam Date Seen by Provider: Dec 07, 2017 Time Seen by Provider: 23:30 Narrative GENERAL: This is a well-nourished, well-developed patient, in no apparent distress. SKIN: No rashes, ecchymoses or lesions. Warm and dry. HEAD: Atraumatic. Normocephalic. EYES: PERRL, EOMI, no discharge or injection. No scleral icterus. EARS: Clear NOSE: Nasal turbinates appear normal. THROAT: Mucosa pink and moist. Airway patent. NECK: Trachea midline. supple, moves head freely. LUNGS: Clear to auscultation. CV: Regular in rhythm. ABDOMEN: Soft nontender. EXT: No clubbing cyanosis or edema. Data Data Last Documented VS Vital Signs Date Time Temp Pulse Resp B/P (MAP) Pulse Ox O2 Delivery O2 Flow Rate FiO2 12/07/17 23:00 103 20 100/67 (78) 93 12/07/17 19:23 98.4 Orders Orders Complete Blood Count With Diff (12/07/17 19:30) Comprehensive Metabolic Panel (12/07/17 19:30) Thyroid Stimulating Hormone (12/07/17 19:30) Psych Screen (12/07/17 19:30) Drug Screen, Random Urine (12/07/17 19:30) Alcohol (Ethanol) (12/07/17 19:30) Salicylates (Aspirin) (12/07/17 19:30) Tylenol (Acetaminophen) (12/07/17 19:30) Ed Urine Pregnancytest Poc (12/07/17 19:30) Labs Laboratory Tests Test 12/07/17 20:00 12/07/17 20:10 White Blood Count 7.3 TH/MM3 Red Blood Count 5.22 MIL/MM3 Hemoglobin 16.2 GM/DL Hematocrit 47.5 % Mean Corpuscular Volume 91.0 FL Mean Corpuscular Hemoglobin 31.0 PG Mean Corpuscular Hemoglobin Concent 34.1 % Red Cell Distribution Width 13.7 % Platelet Count 298 TH/MM3 Mean Platelet Volume 8.3 FL Neutrophils (%) (Auto) 55.6 % Lymphocytes (%) (Auto) 32.6 % Monocytes (%) (Auto) 5.4 % Eosinophils (%) (Auto) 4.5 % Basophils (%) (Auto) 1.9 % Neutrophils # (Auto) 4.1 TH/MM3 Lymphocytes # (Auto) 2.4 TH/MM3 Monocytes # (Auto) 0.4 TH/MM3 Eosinophils # (Auto) 0.3 TH/MM3 Basophils # (Auto) 0.1 TH/MM3 CBC Comment DIFF FINAL Differential Comment Blood Urea Nitrogen 15 MG/DL Creatinine 0.88 MG/DL Random Glucose 96 MG/DL Total Protein 7.7 GM/DL Albumin 3.8 GM/DL Calcium Level 8.5 MG/DL Alkaline Phosphatase 134 U/L Aspartate Amino Transf (AST/SGOT) 14 U/L Alanine Aminotransferase (ALT/SGPT) 19 U/L Total Bilirubin LESS THAN 0.1 MG/DL Sodium Level 142 MEQ/L Potassium Level 3.8 MEQ/L Chloride Level 110 MEQ/L Carbon Dioxide Level 24.3 MEQ/L Anion Gap 8 MEQ/L Estimat Glomerular Filtration Rate 69 ML/MIN Thyroid Stimulating Hormone 3rd Gen 0.754 uIU/ML Salicylates Level 3.6 MG/DL Acetaminophen Level LESS THAN 2.0 MCG/ML Ethyl Alcohol Level 138 MG/DL Urine Opiates Screen NEG Urine Barbiturates Screen NEG Urine Amphetamines Screen NEG Urine Benzodiazepines Screen NEG Urine Cocaine Screen POS Urine Cannabinoids Screen NEG MDM Medical Record Reviewed: Yes Supervised Visit with EILEEN: Yes Interpretation(s) Laboratory Tests Test 12/07/17 20:00 12/07/17 20:10 White Blood Count 7.3 TH/MM3 Red Blood Count 5.22 MIL/MM3 Hemoglobin 16.2 GM/DL Hematocrit 47.5 % Mean Corpuscular Volume 91.0 FL Mean Corpuscular Hemoglobin 31.0 PG Mean Corpuscular Hemoglobin Concent 34.1 % Red Cell Distribution Width 13.7 % Platelet Count 298 TH/MM3 Mean Platelet Volume 8.3 FL Neutrophils (%) (Auto) 55.6 % Lymphocytes (%) (Auto) 32.6 % Monocytes (%) (Auto) 5.4 % Eosinophils (%) (Auto) 4.5 % Basophils (%) (Auto) 1.9 % Neutrophils # (Auto) 4.1 TH/MM3 Lymphocytes # (Auto) 2.4 TH/MM3 Monocytes # (Auto) 0.4 TH/MM3 Eosinophils # (Auto) 0.3 TH/MM3 Basophils # (Auto) 0.1 TH/MM3 CBC Comment DIFF FINAL Differential Comment Blood Urea Nitrogen 15 MG/DL Creatinine 0.88 MG/DL Random Glucose 96 MG/DL Total Protein 7.7 GM/DL Albumin 3.8 GM/DL Calcium Level 8.5 MG/DL Alkaline Phosphatase 134 U/L Aspartate Amino Transf (AST/SGOT) 14 U/L Alanine Aminotransferase (ALT/SGPT) 19 U/L Total Bilirubin LESS THAN 0.1 MG/DL Sodium Level 142 MEQ/L Potassium Level 3.8 MEQ/L Chloride Level 110 MEQ/L Carbon Dioxide Level 24.3 MEQ/L Anion Gap 8 MEQ/L Estimat Glomerular Filtration Rate 69 ML/MIN Thyroid Stimulating Hormone 3rd Gen 0.754 uIU/ML Salicylates Level 3.6 MG/DL Acetaminophen Level LESS THAN 2.0 MCG/ML Ethyl Alcohol Level 138 MG/DL Urine Opiates Screen NEG Urine Barbiturates Screen NEG Urine Amphetamines Screen NEG Urine Benzodiazepines Screen NEG Urine Cocaine Screen POS Urine Cannabinoids Screen NEG Differential Diagnosis MDM: High Differential diagnoses: Schizophrenia, schizoaffective disorder, bipolar, anxiety, depression, adjustment reaction, mood disorder NOS, ODD, depressive disorder NOS, substance induced mood disorder, infection,electrolyte abnormality , malingering. Narrative Course Mental health screening discussed with the patient. Psychiatric screen ordered. This is a patient who had been seen at [facility] and medically cleared. She was transferred here to [place] for a mental health screening. She was placed under a Lemon act by the ER attending. This is medical clearance for psychiatric admission, alcohol intoxication, substance abuse Diagnosis Primary Impression: Suicidal ideation Additional Impressions: Alcohol intoxication Drug abuse Condition: Stable Tray Moran Dec 07, 2017 23:32
--- NOTE | 2017-12-08 09:28 | PD ---
Physical Exam Date Seen by Provider: Dec 08, 2017 Time Seen by Provider: 09:27 Narrative 47-year-old female previously Lemon acted and medically cleared for psychiatric evaluation, has been seen by Dr. Donaldson and deemed psychiatrically stable for discharge. Patient remains medically stable at this time. Follow-up will be based on Dr. Donaldson's note. Data Data Last Documented VS Vital Signs Date Time Temp Pulse Resp B/P (MAP) Pulse Ox O2 Delivery O2 Flow Rate FiO2 12/07/17 23:00 103 20 100/67 (78) 93 12/07/17 19:23 98.4 Orders Orders Complete Blood Count With Diff (12/07/17 19:30) Comprehensive Metabolic Panel (12/07/17 19:30) Thyroid Stimulating Hormone (12/07/17 19:30) Psych Screen (12/07/17 19:30) Drug Screen, Random Urine (12/07/17 19:30) Alcohol (Ethanol) (12/07/17 19:30) Salicylates (Aspirin) (12/07/17 19:30) Tylenol (Acetaminophen) (12/07/17 19:30) Ed Urine Pregnancytest Poc (12/07/17 19:30) Diet Regular Basic (12/08/17 Breakfast) Labs Laboratory Tests Test 12/07/17 20:00 12/07/17 20:10 White Blood Count 7.3 TH/MM3 Red Blood Count 5.22 MIL/MM3 Hemoglobin 16.2 GM/DL Hematocrit 47.5 % Mean Corpuscular Volume 91.0 FL Mean Corpuscular Hemoglobin 31.0 PG Mean Corpuscular Hemoglobin Concent 34.1 % Red Cell Distribution Width 13.7 % Platelet Count 298 TH/MM3 Mean Platelet Volume 8.3 FL Neutrophils (%) (Auto) 55.6 % Lymphocytes (%) (Auto) 32.6 % Monocytes (%) (Auto) 5.4 % Eosinophils (%) (Auto) 4.5 % Basophils (%) (Auto) 1.9 % Neutrophils # (Auto) 4.1 TH/MM3 Lymphocytes # (Auto) 2.4 TH/MM3 Monocytes # (Auto) 0.4 TH/MM3 Eosinophils # (Auto) 0.3 TH/MM3 Basophils # (Auto) 0.1 TH/MM3 CBC Comment DIFF FINAL Differential Comment Blood Urea Nitrogen 15 MG/DL Creatinine 0.88 MG/DL Random Glucose 96 MG/DL Total Protein 7.7 GM/DL Albumin 3.8 GM/DL Calcium Level 8.5 MG/DL Alkaline Phosphatase 134 U/L Aspartate Amino Transf (AST/SGOT) 14 U/L Alanine Aminotransferase (ALT/SGPT) 19 U/L Total Bilirubin LESS THAN 0.1 MG/DL Sodium Level 142 MEQ/L Potassium Level 3.8 MEQ/L Chloride Level 110 MEQ/L Carbon Dioxide Level 24.3 MEQ/L Anion Gap 8 MEQ/L Estimat Glomerular Filtration Rate 69 ML/MIN Thyroid Stimulating Hormone 3rd Gen 0.754 uIU/ML Salicylates Level 3.6 MG/DL Acetaminophen Level LESS THAN 2.0 MCG/ML Ethyl Alcohol Level 138 MG/DL Urine Opiates Screen NEG Urine Barbiturates Screen NEG Urine Amphetamines Screen NEG Urine Benzodiazepines Screen NEG Urine Cocaine Screen POS Urine Cannabinoids Screen NEG MDM Medical Record Reviewed: Yes Supervised Visit with EILEEN: Yes Narrative Course 47-year-old female previously Lemon acted and medically cleared for psychiatric evaluation, has been seen by Dr. Donaldson and deemed psychiatrically stable for discharge. Patient remains medically stable at this time. Follow-up will be based on Dr. Donaldson's note. Diagnosis Primary Impression: Suicidal ideation Additional Impressions: Alcohol intoxication Drug abuse Patient Instructions: General Instructions Disposition: 01 DISCHARGE HOME Condition: Stable Aroldo Huston Dec 08, 2017 09:28
--- NOTE | 2017-12-08 12:22 | PD.PSY.CON ---
Provisional Diagnosis Admission Date Ransom I. Alcohol-induced mood disorder. Ransom II. Deferred History of Present Illness Service Psychiatry Consult Requested By ER Reason for Consult Under Lemon act Primary Care Physician Unknown HPI The patient 47-year-old woman, domiciled in [place] with her son, , unemployed, on SSI process, with psychiatric history of alcohol use disorder, cocaine use disorder, no previous psychiatric hospitalizations, no previous suicidal attempts, medical history of lower back pain, who presents the emergency room with a friend for psychiatric evaluation. Initially patient reports that she is very sad, reports she that she is depressed, reports that she is suicidal. Reports over the past few days, she has been thinking about ways to commit suicide, patient reports that she is tired of living life and wants to end it. Patient reports that she occasionally drinks alcohol, does not use drugs. Reports that she has too many life stressors to deal with. Denies any recent ingestions of any toxi. BAL was 138 and she was jadon. On psychiatric evaluation posteriorly the patient denies that she ever said that she was suicidal or depressed. The patient says that she does not remember because she was high in alcohol and cocaine. The patient seems to be in a good spirits, calm and cooperative, denies depressive symptoms, she denies anxiety, she denies suicidal or homicidal ideation, she denies visual and auditory hallucinations at the moment. During longitudinal observation the patient has been calm, cooperative, no agitation or aggressive behavior observed. She denies symptoms of withdrawal. She reports daily use of cocaine and alcohol. Past Family Social History Coded Allergies: milk (Unverified Allergy, Severe, CANT BREATHE, 12/07/17) Reported Medications [Anti Depressant Med] No Conflict Check, PO DAILY 12/07/17 [Muscle Relaxer Med] No Conflict Check, PO TID 12/07/17 [Anxiety Med] No Conflict Check, TAB PO BID 12/07/17 [Stomach Medicine] No Conflict Check, TAB PO 12/07/17 Physical Exam Vital Signs Vital Signs Date Time Temp Pulse Resp B/P (MAP) Pulse Ox O2 Delivery O2 Flow Rate FiO2 12/08/17 09:53 12/07/17 23:00 103 20 93 12/07/17 19:23 98.4 Lab Results Test 12/07/17 20:00 12/07/17 20:10 White Blood Count 7.3 TH/MM3 Red Blood Count 5.22 MIL/MM3 Hemoglobin 16.2 GM/DL Hematocrit 47.5 % Mean Corpuscular Volume 91.0 FL Mean Corpuscular Hemoglobin 31.0 PG Mean Corpuscular Hemoglobin Concent 34.1 % Red Cell Distribution Width 13.7 % Platelet Count 298 TH/MM3 Mean Platelet Volume 8.3 FL Neutrophils (%) (Auto) 55.6 % Lymphocytes (%) (Auto) 32.6 % Monocytes (%) (Auto) 5.4 % Eosinophils (%) (Auto) 4.5 % Basophils (%) (Auto) 1.9 % Neutrophils # (Auto) 4.1 TH/MM3 Lymphocytes # (Auto) 2.4 TH/MM3 Monocytes # (Auto) 0.4 TH/MM3 Eosinophils # (Auto) 0.3 TH/MM3 Basophils # (Auto) 0.1 TH/MM3 CBC Comment DIFF FINAL Differential Comment Blood Urea Nitrogen 15 MG/DL Creatinine 0.88 MG/DL Random Glucose 96 MG/DL Total Protein 7.7 GM/DL Albumin 3.8 GM/DL Calcium Level 8.5 MG/DL Alkaline Phosphatase 134 U/L Aspartate Amino Transf (AST/SGOT) 14 U/L Alanine Aminotransferase (ALT/SGPT) 19 U/L Total Bilirubin LESS THAN 0.1 MG/DL Sodium Level 142 MEQ/L Potassium Level 3.8 MEQ/L Chloride Level 110 MEQ/L Carbon Dioxide Level 24.3 MEQ/L Anion Gap 8 MEQ/L Estimat Glomerular Filtration Rate 69 ML/MIN Thyroid Stimulating Hormone 3rd Gen 0.754 uIU/ML Salicylates Level 3.6 MG/DL Acetaminophen Level LESS THAN 2.0 MCG/ML Ethyl Alcohol Level 138 MG/DL Urine Opiates Screen NEG Urine Barbiturates Screen NEG Urine Amphetamines Screen NEG Urine Benzodiazepines Screen NEG Urine Cocaine Screen POS Urine Cannabinoids Screen NEG Mental Status Examination Appearance: Appropriate Consciousness: Alert Orientation: x4 Motor Activity: Normal gait Speech: Unremarkable Language: Adequate Fund of Knowledge: Adequate Attention and Concentration: Adequate Memory: Unremarkable Mood: Appropriate Affect: Appropriate Thought Process & Associations: Intact Thought Content: Appropriate Hallucination Type: None Delusion Type: None Suicidal Ideation: No Suicidal Plan: No Suicidal Intention: No Homicidal Ideation: No Homicidal Plan: No Homicidal Intention: No Insight: Adequate Judgment: Adequate Assessment & Plan Problem List: (1) Substance induced mood disorder ICD Codes: F19.94 - Other psychoactive substance use, unspecified with psychoactive substance-induced mood disorder Assessment & Plan: The patient was seen today for psychiatric reevaluation. The patient does not present any neuropsychiatric symptoms that requires an immediate psychiatric intervention. The patient denies depression, she denies anxiety, she denies melvin and psychosis. She denies suicidal and homicidal ideation, she denies visual and auditory hallucinations. The patient is logical , coherent and relevant, definitely clinically sober at the moment. Apparently her recent suicidal statement and symptoms of depression were related with acute cocaine and alcohol intoxication. I have offered detox/rehab to the patient, but she declined. She does not meet criteria for involuntary psychiatric admission at this moment. I will leave the Lemon act Assessment & Plan Estimated LOS: Mick Rolle MD Dec 08, 2017 12:22
== END 2017-12-08 09:57 | disposition home or self-care (01) ==
LOC: PHED 19:15 → NEPB 12-08 09:57
DX: F10.129 Alcohol abuse with intoxication, unspecified (principal); F14.10 Cocaine abuse, uncomplicated; F32.9 Major depressive disorder, single episode, unspecified; F12.90 Cannabis use, unspecified, uncomplicated; M19.90 Unspecified osteoarthritis, unspecified site; F17.210 Nicotine dependence, cigarettes, uncomplicated; Y90.6 Blood alcohol level of 120-199 mg/100 ml
CPT/HCPCS: 80053; 80307; 84443; 84703; 85025; 99284

== ENCOUNTER 2018-08-21 08:50 | Observation (INO) ==
--- NOTE | 2018-08-21 09:21 | ED ---
HPI General Chief Complaint: Extremity Problem,Nontraumatic Stated Complaint: Left Hip/Left Knee Complaint Time Seen by Provider: 08/21/18 09:05 Source: patient Mode of arrival: ambulatory Limitations: no limitations History of Present Illness HPI Narrative: 48-year-old female presents the ED for evaluation of 3-week history of left-sided leg and hip pain. Pain is shooting, 10/10, radiates to the knee. Patient endorses pins and needles sensation on the inner aspect of the left thigh. She denies weakness, giving way, incontinence. She denies history of injury to the area or recent overuse. She states "I have a tilted pelvis and I have arthritis in both hips." She was seen with the same complaint a few weeks ago and completed a course of steroids with no improvement of symptoms. X-ray at that time showed degenerative changes. She states " I am sick of being in pain." She does not have a primary care provider. Related Data Previous Rx's Medication Instructions Recorded methylprednisolone [Medrol (Yovany)] See Label Instructions PO PER PKG 08/12/18 DIR #21 each naproxen 500 mg PO BID PRN #20 tab 08/12/18 Allergies Allergy/AdvReac Type Severity Reaction Status Date / Time milk Allergy Severe CANT Verified 08/12/18 10:23 BREATHE Review of Systems ROS: all other systems reviewed are negative PMFSH Medical History Medical History Patient denies medical problems (Acute) Surgical History Surgical History No history of previous surgery (Acute) Social History Social History Substance History: No History of Abuse Second Hand Smoke Exposure: Yes Smoking Status: Current every day smoker Tobacco Type: Cigarettes How Often Do You Have a Drink Containing Alcohol: 2 to 4 times a month Recent Travel in [facility] within the Last 8 Weeks: No Recent Out of Country Travel within the Last 8 Weeks: No Exam Narrative Exam Narrative: GENERAL: Well-nourished, well-developed, nontoxic-appearing white female in no acute distress. SKIN: Focused skin assessment warm/dry. HEAD: Atraumatic. Normocephalic. EYES: Pupils equal and round. No scleral icterus. No injection or drainage. ENT: No nasal bleeding or discharge. Mucous membranes pink and moist. NECK: Trachea midline. No JVD. CARDIOVASCULAR: Regular rate and rhythm. No murmur appreciated. RESPIRATORY: No accessory muscle use. Clear to auscultation. Breath sounds equal bilaterally. GASTROINTESTINAL: Abdomen soft, non-tender, nondistended. Hepatic and splenic margins not palpable. MUSCULOSKELETAL: No obvious deformities. No clubbing. No cyanosis. No edema. 5/5 strength in all muscle groups of the bilateral lower extremities. Great toe flexors intact bilaterally. Some pain with flexion, extension, internal or external rotation of the hip. BACK: Midline tenderness in the lumbar spine. Tenderness to palpation of the sciatic notch on the left side. Straight leg raise positive on the left. NEUROLOGICAL: Awake and alert. No obvious cranial nerve deficits. Motor grossly within normal limits. Normal speech. PSYCHIATRIC: Appropriate mood and affect; insight and judgment normal. Course Initial Documented Vital Signs Temperature 98.5 F 08/21/18 08:57 Pulse Rate 128 H 08/21/18 08:57 Respiratory Rate 20 08/21/18 08:57 Blood Pressure 182/109 H 08/21/18 08:57 Pulse Oximetry 95 08/21/18 08:57 Last Documented Vital Signs Temperature 98.5 F 08/21/18 08:57 Pulse Rate 100 H 08/21/18 11:23 Respiratory Rate 19 08/21/18 11:23 Blood Pressure 144/82 H 08/21/18 11:23 Pulse Oximetry 96 08/21/18 11:23 Medical Decision Making [facility] Narrative Medical decision making narrative: 48-year-old female presents the ED for evaluation of 3-week history of lower back pain, radiating into the left hip with associated paresthesia of the left inner thigh. She was seen a few weeks ago and took a Medrol Dosepak and some anti-inflammatories with no improvement of symptoms. She can identify no acute or distant injury to the area. Vitals reviewed. On physical exam she is neurologically intact including great toe flexors. She was administered 5 mg [place], IM Toradol. CT of the lumbar spine with several findings prompted an MRI which reveals mild disc bulges at the L2- 3 and L3-4 levels as well as superimposed left neural foraminal disc protrusion at the L3-4 level causing very prominent narrowing of the left neural foramen and impressing upon the exiting left L3 nerve root. On recheck patient continues to complain of pain and was administered 4 mg morphine IV and 8 mg of dexamethasone. I discussed the findings with the patient as well as the intent to consult neurosurgery. She is agreeable. I spoke with Dr. Woods who recommends observation admission and will see the patient tomorrow. Basic lab work without acute abnormalities. Coags pending. I spoke with Dr. Bartholomew who agrees to accept the patient to the medicine service. Please see medicine and neurosurgery notes for disposition. Medical Screen Exam Complete: Yes Emergency Medical Condition: Yes Differential Diagnosis Differential Diagnosis: Osteoarthritis versus sciatica versus radiculopathy versus other Lab Data Result diagrams: 08/21/18 10:38 08/21/18 10:38 POC Results POC Urine Results Negative Lab Results 08/21/18 08/21/18 Range/Units 10:38 10:38 WBC 13.5 H (4.0-11.0) th/mm3 RBC 4.84 (4.00-5.30) mil/mm3 Hgb 15.4 H (11.6-15.3) gm/dL Hct 45.8 (35.0-46.0) % MCV 94.6 (80.0-100.0) fL MCH 31.9 (27.0-34.0) pg MCHC 33.7 (32.0-36.0) % RDW 13.9 (11.6-17.2) % Plt Count 299 (150-450) th/mm3 MPV 7.7 (7.0-11.0) fL Neut % (Auto) 77.3 H (16.0-70.0) % Lymph % (Auto) 15.8 (9.0-44.0) % [place] % (Auto) 5.0 (0.0-8.0) % Eos % (Auto) 1.6 (0.0-4.0) % Baso % (Auto) 0.3 (0.0-2.0) % Neut # (Auto) 10.4 H (1.8-7.7) th/mm3 Lymph # (Auto) 2.1 (1.0-4.8) th/mm3 [place] # (Auto) 0.7 (0.0-0.9) th/mm3 Eos # (Auto) 0.2 (0.0-0.4) th/mm3 Baso # (Auto) 0.0 (0.0-0.2) th/mm3 WBC Differential . Differential Comment Auto diff final Sodium 140 (136-145) meq/L Potassium 4.1 (3.5-5.1) meq/L Chloride 108 H (98-107) meq/L Carbon Dioxide 25.0 (21.0-32.0) meq/L Anion Gap 7 (5-15) meq/L BUN 12 (7-18) mg/dL Creatinine 0.66 (0.50-1.00) mg/dL Estimated GFR Greater than 89 (>89) mL/min Random Glucose 81 (74-106) mg/dL Calcium 8.6 (8.5-10.1) mg/dL Imaging Data Radiologist's impression: Lumbar Spine CT 08/21/18 09:16 CONCLUSION: 1. Asymmetric disc bulges being worse on the left at the L2-L3 and L3-L4 levels. There is narrowing of the left neural foramina at these levels being more prominent at the L3-L4 level. 2. Mild left lateral recess disc protrusion at the L5-S1 level. 3. Bilateral adrenal gland adenomas. Lumbar Spine MRI 08/21/18 10:18 CONCLUSION: 1. Mild disc bulges at the L2-L3 and L3-L4 levels. 2. Superimposed left neural foraminal disc protrusion at the L3-L4 level causing very prominent narrowing of the left neural foramen and impressing upon the exiting left L3 nerve root. 3. Mild left paracentral to lateral recess disc protrusion at the L5-S1 level. Discharge Plan Discharge Disposition Patient Disposition: 01 Discharge Home Discharge Condition Condition: Stable Discharge Order Discharge Orders: ED Use Only Admit Order (Routine); Ordered 08/21/18 Ordered By: Kayla Kelly Physicians Team ED Provider: Kwaku Driver ED Midlevel Provider: Kayla Kelly Primary Care Provider: Primary Care Alannah Carrillo Rxs /Orders / Referrals /Forms Prescriptions: No Action methylprednisolone [Medrol (Yovany)] 4 mg tablets,dose pack See Label Instructions PO PER PKG DIR Qty: 21 RF: 0 naproxen 500 mg tablet 500 mg PO BID PRN (Reason: pain) Qty: 20 RF: 0 Referrals: [facility] [Outside] - Call for Appointment Discharge Interventions Interventions: Vital Signs Last Done: 08/21/18 09:03 Status ED Status: Admitted Observation Patient
--- NOTE | 2018-08-21 10:09 | CT ---
EXAM DATE: 08/21/2018 9:59 AM EST AGE/SEX: 48 years / Female INDICATIONS: Lower back pain. Left hip pain with numbness down left leg. CLINICAL DATA: This is the patient's initial encounter. Patient reports that signs and symptoms have been present for 1 week and indicates a pain score of 10/10. MEDICAL/SURGICAL HISTORY: None. None. RADIATION DOSE: 16.90 CTDI (mGy) COMPARISON: No prior exams available for comparison. TECHNIQUE: Contiguous axial images were acquired with a multirow detector CT scanner without contras t. Multiplanar reconstructions in the sagittal and coronal plane were also performed. Using automate d exposure control and adjustment of the mA and/or kV according to patient size, radiation dose was k ept as low as reasonably achievable to obtain optimal diagnostic quality images. DICOM format image data is available electronically for review and comparison. FINDINGS: Vertebrae: Normal vertebral body height. Alignment: The lumbar vertebral bodies are normally aligned in the sagittal plane. There is a mild l evocurvature of the lumbar spine with the apex at the L3-L4 level. There are bilateral masses in the adrenal glands. These measure negative Hounsfield units are consist ent with benign adenomas. T12-L1: The thecal sac has a normal diameter. No evidence of disc bulge or protrusion. The neural foramina are patent bilaterally. L1-L2: The thecal sac has a normal diameter. No evidence of disc bulge or protrusion. The neural f oramina are patent bilaterally. L2-L3: There is mild diffuse disc bulge causing mild impression on the thecal sac. The bulge is asym metric and worse on the left causing a mild impression on the left neural foramina. The right neural foramina is patent. L3-L4: There is mild diffuse disc bulge being asymmetric and worse in the left. There is mild narrow ing of the thecal sac. There is very prominent narrowing of the left neural foramen. The right neural foramina is patent. L4-L5: There is minimal bulging without significant stenosis. The neural foramina are grossly patent . There is mild facet hypertrophy. L5-S1: There is a mild left lateral recess disc protrusion causing a minimal impression on the anter ior left side of thecal sac. The margin of this appears calcified calcified. The neural foramina are normal. There is mild facet hypertrophy. CONCLUSION: 1. Asymmetric disc bulges being worse on the left at the L2-L3 and L3-L4 levels. There is narrowing of the left neural foramina at these levels being more prominent at the L3-L4 level. 2. Mild left lateral recess disc protrusion at the L5-S1 level. 3. Bilateral adrenal gland adenomas. Electronically signed by: Boni Damico MD Board Certified Radiologist 08/21/2018 10:08 AM EST
[2018-08-21 10:48] LABS: Baso % (Auto) 0.3 % (0.0-2.0); Eos # (Auto) 0.2 th/mm3 (0.0-0.4); Eos % (Auto) 1.6 % (0.0-4.0); Hematocrit 45.8 % (35.0-46.0); Hemoglobin 15.4 gm/dL (11.6-15.3); Lymph # (Auto) 2.1 th/mm3 (1.0-4.8); Lymph % (Auto) 15.8 % (9.0-44.0); Mean Corpuscular HGB Conc 33.7 % (32.0-36.0); Mean Corpuscular Hemoglobin 31.9 pg (27.0-34.0); Mean Corpuscular Volume 94.6 fL (80.0-100.0); Mean Platelet Volume 7.7 fL (7.0-11.0); Mono # (Auto) 0.7 th/mm3 (0.0-0.9); Neut # (Auto) 10.4 th/mm3 (1.8-7.7); Neut % (Auto) 77.3 % (16.0-70.0); Platelet Count 299 th/mm3 (150-450); Red Blood Count 4.84 mil/mm3 (4.00-5.30); Red Cell Distribution Width 13.9 % (11.6-17.2); White Blood Count 13.5 th/mm3 (4.0-11.0)
[2018-08-21 11:01] LABS: Anion Gap 7 meq/L (5-15); Blood Urea Nitrogen 12 mg/dL (7-18); Calcium 8.6 mg/dL (8.5-10.1); Chloride 108 meq/L (98-107); Glomerular Filtration Rate Greater Than 89 mL/min (>89); Glucose,Random 81 mg/dL (74-106); Potassium 4.1 meq/L (3.5-5.1); Sodium 140 meq/L (136-145)
[2018-08-21] MEDS ORDERED: Morphine Inj 4 MG/ML Vial IV.PUSH ONE (11:08)
[2018-08-21] MEDS ORDERED: Dexamethasone Inj 20 MG/5 ML Vial IV.PUSH ONE (11:09)
--- NOTE | 2018-08-21 12:37 | MR ---
EXAM DATE: 08/21/2018 12:28 PM EST AGE/SEX: 48 years / Female INDICATIONS: . Lower back pain radiating down left leg with no known injury. CLINICAL DATA: This is the patient's initial encounter. Patient reports that signs and symptoms have been present for 1 week and indicates a pain score of 8/10. MEDICAL/SURGICAL HISTORY: None. section. COMPARISON: [facility] – [place], CT LUMBAR SPINE W/O CONTRAST, 08/21/2018. . TECHNIQUE: Multiplanar, multisequence MRI of the lumbar spine was performed without contrast. Patie nt was scanned in a sitting position; neutral, flexion, and extension scans were performed in the sa gittal plane. FINDINGS: Vertebra: Homogeneous signal. Normal alignment. Conus: Normal level and configuration. T12-L1: The thecal sac has a normal diameter. No evidence of disc bulge or protrusion. The neural foramina are patent bilaterally. L1-L2: The thecal sac has a normal diameter. No evidence of disc bulge or protrusion. The neural foramina are patent bilaterally. L2-L3: There is mild asymmetric disc bulge being worse on the left. There is minimal narrowing of t he left neural foramina. The right neural foramen appears patent. L3-L4: There is mild asymmetric disc bulge being worse than the left. In addition there appears to be a left neural foraminal focal disc protrusion impressing upon the exiting left L3 nerve root. The right neural foramina is patent. L4-L5: The thecal sac has a normal diameter. No evidence of disc bulge or protrusion. The neural foramina are patent bilaterally. There is mild facet hypertrophy. L5-S1: There is a mild left paracentral to left lateral recess disc protrusion causing a mild impre ssion on the anterior left side of thecal sac without significant stenosis. This is in close proximit y to the left S1 nerve root at the lateral recess level. The neural foramina are patent bilaterally. There is mild facet hypertrophy. CONCLUSION: 1. Mild disc bulges at the L2-L3 and L3-L4 levels. 2. Superimposed left neural foraminal disc protrusion at the L3-L4 level causing very prominent narr owing of the left neural foramen and impressing upon the exiting left L3 nerve root. 3. Mild left paracentral to lateral recess disc protrusion at the L5-S1 level. Electronically signed by: Boni Damico MD Board Certified Radiologist 08/21/2018 12:36 PM EST
[2018-08-21] MEDS ORDERED: Acetaminophen 325 MG Tablet PO PRN (13:00)
--- NOTE | 2018-08-21 13:32 | P.HPIM ---
History of Present Illness Primary Care Physician: No Primary Care Physician Chief Complaint: Lower extremity pain History of Present Illness: The patient is a 48-year-old female with a past medical history of arthritis who is presenting to the hospital with pain in her left lower extremity. The patient says she normally has right lower extremity pain because she needs to have her right hip replaced. She says over the past 2 weeks she has developed pain in her left lower extremity. She describes it as a burning sensation in her left leg that goes from the groin to the knee along the inside of her leg. She describes the pain as throbbing and also sharp and stabbing. She says moving around and doing activities like making coffee makes the pain worse. She says sometimes laying down on the right side makes the pain better. She came to the emergency department last Monday and took all her pain medications and steroids as directed. She said the medications did not help. She says the day before yesterday she started to experience numbness along the inner portion of her left lower extremity in the thigh and knee area. She has never had any similar episodes in the past involving her lower extremities. She says a few years ago she did have a condition where she could not move her right upper extremity for 3 days and that was supposedly secondary to severe arthritis. The patient says the pain medications in the emergency department have helped. Review of Systems All other systems reviewed negative except as stated in HPI PMFSH - History History Provided By: Patient - Medical History Medical History: Medical History (Last Updated 08/21/18 @ 13:26 by Lupillo Larson DO) Benign skin tumor Gastritis Osteoarthritis Smoking history - Surgical History Surgical History: Surgical History (Last Updated 08/21/18 @ 13:26 by Lupillo Larson DO) Previous section - Family History Family History: Family History (Last Updated 08/21/18 @ 13:26 by Lupillo Larson DO) Other Dementia - Social History I have reviewed the patient's Social History: Yes - Tobacco History Second Hand Smoke Exposure: Yes Tobacco Use In Past 30 Days: Yes Smoking Status: Current every day smoker Tobacco Type: Cigarettes - Alcohol History How Often Do You Have a Drink Containing Alcohol: 2 to 4 times a month - Substance Use History Substance History: No History of Abuse - Travel History Recent Travel in the [place] Within the Last 8 Weeks: No Recent Travel Out of the Country Within the Last 8 Weeks: No - Immunization History Tetanus Immunization: Unsure Medications and Allergies Active Medications: Active Medications Acetaminophen (Tylenol) 650 mg PO Q4H PRN PRN Reason: Temp > 100.4, pain 1-2 Morphine Sulfate (Morphine Inj) 4 mg IV.PUSH Q4H PRN PRN Reason: BREAKTHROUGH PAIN Ondansetron HCl (Zofran Inj) 4 mg IV.PUSH Q6H PRN PRN Reason: NAUSEA OR VOMITING Oxycodone/Acetaminophen (Percocet 10/325 Mg) 1 tab PO Q4H PRN PRN Reason: pain 6-10 Oxycodone/Acetaminophen (Percocet 5/325 Mg) 1 tab PO Q4H PRN PRN Reason: pain 3-5 Senna/Docusate Sodium (Autumn-Colace) 1 tab PO BID RAY Sodium Chloride (Ns Flush) 2 ml IV.FLUSH BID RAY Sodium Chloride (Ns Flush) 2 ml IV.FLUSH PRN PRN PRN Reason: FLUSH AFTER USING IV ACCESS Allergies Allergy/AdvReac Type Severity Reaction Status Date / Time milk Allergy Severe CANT Verified 08/12/18 10:23 BREATHE Exam Vital signs: Vital Signs 08/21/18 08:57 08/21/18 09:03 08/21/18 11:23 Temperature 98.5 F Pulse Rate 128 H 96 H 100 H Respiratory Rate 20 18 19 Blood Pressure 182/109 H 153/103 H 144/82 H Pulse Oximetry 95 96 96 Intake & Output 08/20/18 08/21/18 08/21/18 18:59 06:59 18:59 Weight 52.163 kg Narrative: GENERAL: Well-nourished, well-developed, nad. SKIN: Focused skin assessment warm/dry. HEAD: Atraumatic. Normocephalic. EYES: Pupils equal and round. No scleral icterus. No injection or drainage. ENT: No nasal bleeding or discharge. Mucous membranes pink and moist. NECK: Trachea midline. No JVD. CARDIOVASCULAR: Regular rate and rhythm. No murmur appreciated. RESPIRATORY: No accessory muscle use. Clear to auscultation. Breath sounds equal bilaterally. GASTROINTESTINAL: Abdomen soft, non-tender, nondistended. Hepatic and splenic margins not palpable. MUSCULOSKELETAL: No obvious deformities. No clubbing. No cyanosis. No edema. NEUROLOGICAL: Awake and alert. No obvious cranial nerve deficits. Motor grossly within normal limits. Numbness along left inner thigh and knee area. Normal speech. PSYCHIATRIC: Appropriate mood and affect; insight and judgment normal. Results - Labs CBC & Chem 7: 08/21/18 10:38 08/21/18 10:38 Labs: Short CBC 08/21/18 Range/Units 10:38 WBC 13.5 H (4.0-11.0) th/mm3 Hgb 15.4 H (11.6-15.3) gm/dL Hct 45.8 (35.0-46.0) % Plt Count 299 (150-450) th/mm3 BMP 08/21/18 10:38 Sodium 140 Potassium 4.1 Chloride 108 H Carbon Dioxide 25.0 BUN 12 Creatinine 0.66 Calcium 8.6 - Imaging Impressions Lumbar Spine CT 08/21/18 09:16 CONCLUSION: 1. Asymmetric disc bulges being worse on the left at the L2-L3 and L3-L4 levels. There is narrowing of the left neural foramina at these levels being more prominent at the L3-L4 level. 2. Mild left lateral recess disc protrusion at the L5-S1 level. 3. Bilateral adrenal gland adenomas. Lumbar Spine MRI 08/21/18 10:18 CONCLUSION: 1. Mild disc bulges at the L2-L3 and L3-L4 levels. 2. Superimposed left neural foraminal disc protrusion at the L3-L4 level causing very prominent narrowing of the left neural foramen and impressing upon the exiting left L3 nerve root. 3. Mild left paracentral to lateral recess disc protrusion at the L5-S1 level. Caprini VTE Risk Assessment Caprini VTE Risk Assessment: Moderate/High Risk (score >= 2) Caprini Risk Assessment Model: Point Value = 1 Point Value = 2 Point Value = 3 Point Value = 5 Age 41-60 Minor surgery BMI > 25 kg/m2 Swollen legs Varicose veins or History of unexplained or recurrent spontaneous Oral contraceptives or hormone replacement Sepsis (< 1 month) Serious lung disease, including pneumonia (< 1 month) Abnormal pulmonary function Acute myocardial infarction Congestive heart failure (< 1 month) History of inflammatory bowel disease Medical patient at bed rest Age 61-74 Arthroscopic surgery Major open surgery (> 45 min) Laparoscopic surgery (> 45 min) Malignancy Confined to bed (> 72 hours) Immobilizing plaster cast Central venous access Age >= 75 History of VTE Family history of VTE Factor V Leiden Prothrombin [id number] Lupus anticoagulant Anticardiolipin antibodies Elevated serum homocysteine Heparin-induced thrombocytopenia Other congenital or acquired thrombophilia Stroke (< 1 month) Elective arthroplasty Hip, pelvis, or leg fracture Acute spinal cord injury (< 1 month) Prophylaxis Regimen: Total Risk Factor Score Risk Level Prophylaxis Regimen 0-1 Low Early ambulation 2 Moderate Order ONE of the following: *Sequential Compression Device (SCD) *Heparin 5000 units SQ BID 3-4 Higher Order ONE of the following medications: *Heparin 5000 units SQ TID *Enoxaparin/Lovenox 40 mg SQ daily (WT < 150 kg, CrCl > 30 mL/min) *Enoxaparin/Lovenox 30 mg SQ daily (WT < 150 kg, CrCl > 10-29 mL/min) *Enoxaparin/Lovenox 30 mg SQ BID (WT < 150 kg, CrCl > 30 mL/min) AND/OR *Sequential Compression Device (SCD) 5 or more Highest Order ONE of the following medications: *Heparin 5000 units SQ TID (Preferred with Epidurals) *Enoxaparin/Lovenox 40 mg SQ daily (WT < 150 kg, CrCl > 30 mL/min) *Enoxaparin/Lovenox 30 mg SQ daily (WT < 150 kg, CrCl > 10-29 mL/min) *Enoxaparin/Lovenox 30 mg SQ BID (WT < 150 kg, CrCl > 30 mL/min) AND *Sequential Compression Device (SCD) Assessment and Plan - Plan Severe left lower extremity pain S/p steroids and pain medication after prior ED visit. MRI showed: Mild disc bulges at the L2-L3 and L3-L4 levels; Superimposed left neural foraminal disc protrusion at the L3-L4 level causing very prominent narrowing of the left neural foramen and impressing upon the exiting left L3 nerve root; Mild left paracentral to lateral recess disc protrusion at the L5-S1 level. -pain control with a bowel regimen. -physical therapy. -neurosurgery consult pending. Leukocytosis Likely s/t recent steroid course. Afebrile at this time. -follow CBC. Smoking dependence The pt smokes a pack daily. -cessation instruction. HTN Exacerbated by pain. -pain control. -Vasotec as needed. PPx: SCDs Code Status: Full
[2018-08-21] MEDS: oxyCODONE/Acetaminophen 10/325 Tablet PO PRN ×2 (14:57→20:55)
[2018-08-21 16:01] LABS: Activated Partial Thrombo Time 29.9 sec (23.4-31.7); INR 1.2 Ratio; Prothrombin Time 11.7 sec (9.8-11.6)
[2018-08-21] MEDS: Senna/Docusate Sodium 8.6/50 MG Tablet PO SCH (20:55)
[2018-08-22] MEDS: oxyCODONE/Acetaminophen 10/325 Tablet PO PRN ×4 (02:05→21:42)
[2018-08-22 05:46] LABS: Baso % (Auto) 0.1 % (0.0-2.0); Eos % (Auto) 0.2 % (0.0-4.0); Hematocrit 42.2 % (35.0-46.0); Hemoglobin 14.9 gm/dL (11.6-15.3); Lymph # (Auto) 1.8 th/mm3 (1.0-4.8); Lymph % (Auto) 17.8 % (9.0-44.0); Mean Corpuscular HGB Conc 35.3 % (32.0-36.0); Mean Corpuscular Hemoglobin 32.7 pg (27.0-34.0); Mean Corpuscular Volume 92.8 fL (80.0-100.0); Mean Platelet Volume 7.7 fL (7.0-11.0); Mono # (Auto) 0.6 th/mm3 (0.0-0.9); Mono % (Auto) 6.2 % (0.0-8.0); Neut # (Auto) 7.5 th/mm3 (1.8-7.7); Neut % (Auto) 75.7 % (16.0-70.0); Platelet Count 279 th/mm3 (150-450); Red Blood Count 4.55 mil/mm3 (4.00-5.30); Red Cell Distribution Width 13.7 % (11.6-17.2); White Blood Count 9.9 th/mm3 (4.0-11.0)
[2018-08-22 06:07] LABS: Alanine Aminotransferase 13 U/L (10-53); Albumin 3.4 g/dL (3.4-5.0); Alkaline Phosphatase 70 U/L (45-117); Anion Gap 10 meq/L (5-15); Aspartate Aminotransferase 9 U/L (15-37); Blood Urea Nitrogen 23 mg/dL (7-18); Calcium 8.6 mg/dL (8.5-10.1); Carbon Dioxide 23.3 meq/L (21.0-32.0); Chloride 105 meq/L (98-107); Glomerular Filtration Rate 58 mL/min (>89); Glucose,Random 146 mg/dL (74-106); Sodium 138 meq/L (136-145); Total Protein 6.7 g/dL (6.4-8.2)
[2018-08-22] MEDS: Morphine Inj 4 MG/ML Vial IV.PUSH PRN ×2 (09:49→20:06)
[2018-08-22] MEDS: Senna/Docusate Sodium 8.6/50 MG Tablet PO SCH ×2 (09:50→20:06)
--- NOTE | 2018-08-22 12:59 | P.PN ---
Subjective Interval history: 48 years old increasing difficulty in ambulation with left radicuolpathy prior to this also with hip pain R> L- at one point- needs right hip replacement - but no insurance Physical Exam Vital signs: Vital Signs 08/21/18 13:37 08/21/18 17:29 08/21/18 17:30 Temperature Pulse Rate 100 H Respiratory Rate 18 18 18 Blood Pressure 133/73 Pulse Oximetry 95 08/21/18 17:31 08/21/18 20:00 08/21/18 20:15 Temperature 98.7 F Pulse Rate 101 H Respiratory Rate 18 16 16 Blood Pressure 112/64 Pulse Oximetry 94 L 08/21/18 21:26 08/22/18 00:00 08/22/18 02:40 Temperature 99.0 F Pulse Rate 99 H Respiratory Rate 16 16 16 Blood Pressure 104/77 Pulse Oximetry 95 08/22/18 03:31 08/22/18 08:00 08/22/18 12:00 Temperature 99.0 F 98.0 F 97.9 F Pulse Rate 100 H 86 84 Respiratory Rate 18 16 16 Blood Pressure 111/78 116/80 115/79 Pulse Oximetry 95 96 96 Intake & Output 08/21/18 08/22/18 08/22/18 18:59 06:59 18:59 Intake Total 960 / 960 Balance 960 / 960 Weight 52.27 kg Intake: Oral 960 / 960 Other: # Voids 4 Weight On Admission 52.27 kg Narrative: Well-nourished, well-developed, nad. SKIN: Focused skin assessment warm/dry. HEAD: Atraumatic. Normocephalic. EYES: Pupils equal and round. No scleral icterus. No injection or drainage. ENT: No nasal bleeding or discharge. Mucous membranes pink and moist. NECK: Trachea midline. No JVD. CARDIOVASCULAR: Regular rate and rhythm. No murmur appreciated. RESPIRATORY: No accessory muscle use. Clear to auscultation. Breath sounds equal bilaterally. GASTROINTESTINAL: Abdomen soft, non-tender, nondistended. Hepatic and splenic margins not palpable. MUSCULOSKELETAL: No obvious deformities. No clubbing. No cyanosis. No edema. NEUROLOGICAL: Awake and alert. No obvious cranial nerve deficits. + SLR test left PSYCHIATRIC: Appropriate mood and affect; insight and judgment normal. Results - Labs CBC & Chem 7: 08/22/18 05:26 08/22/18 05:26 Laboratory Results - last 24 hr 08/21/18 08/22/18 08/22/18 15:30 05:26 05:26 WBC 9.9 RBC 4.55 Hgb 14.9 Hct 42.2 MCV 92.8 MCH 32.7 MCHC 35.3 RDW 13.7 Plt Count 279 MPV 7.7 Neut % (Auto) 75.7 H Lymph % (Auto) 17.8 [place] % (Auto) 6.2 Eos % (Auto) 0.2 Baso % (Auto) 0.1 Neut # (Auto) 7.5 Lymph # (Auto) 1.8 [place] # (Auto) 0.6 Eos # (Auto) 0.0 Baso # (Auto) 0.0 WBC Differential . Differential Comment Auto diff final PT 11.7 H INR 1.2 APTT 29.9 Sodium 138 Potassium 4.0 Chloride 105 Carbon Dioxide 23.3 Anion Gap 10 BUN 23 H Creatinine 1.02 H Estimated GFR 58 L Random Glucose 146 H Calcium 8.6 Total Bilirubin 0.3 AST 9 L ALT 13 Alkaline Phosphatase 70 Total Protein 6.7 Albumin 3.4 Assessment and Plan - Plan 48 years old increasing difficulty in ambulation- now using a walker back pain with radiculopathy with history chronic hip pain r> l, worsening with chronic hip pain bilatral worsening both condition likely contributing to ambulating difficulties Low back pain with left radiculopathy- with Disc disease L3-4- with nerve impingement S/p steroids and pain medication after prior ED visit. MRI showed: Mild disc bulges at the L2-L3 and L3-L4 levels; Superimposed left neural foraminal disc protrusion at the L3-L4 level causing very prominent narrowing of the left neural foramen and impressing upon the exiting left L3 nerve root; Mild left paracentral to lateral recess disc protrusion at the L5-S1 level. -pain control with a bowel regimen. -physical therapy. -neurosurgery consulted- valauate - conservative management vs, need for surgery OA Bilateral hip pain R > L- worsening - states was supposed to have right hip surgery sometime in March scheduled in [place] by Dr. Oneill - severe right OA- "bone to bone"- but a week prior to this- was bitten by a recluse spider and surgery cancelled. - when rescheduled- was told to re submit to insurance for approval -get CT of both hips to eval severity- then get ortho input for eval PT eval and treat Leukocytosis Likely s/t recent steroid course. Afebrile at this time. -follow CBC. Smoking dependence The pt smokes a pack daily. -cessation instruction. HTN Exacerbated by pain. -pain control. -Vasotec as needed.
--- NOTE | 2018-08-22 14:44 | CT ---
EXAM DATE: 08/22/2018 2:29 PM EST AGE/SEX: 48 years / Female INDICATIONS: Bilateral hip pain, difficulty walking. CLINICAL DATA: This is the patient's initial encounter. Patient reports that signs and symptoms have been present for 2 months and indicates a pain score of 6/10. MEDICAL/SURGICAL HISTORY: None. section. RADIATION DOSE: 7.73 CTDI (mGy) COMPARISON: [facility] – [place], CT ABDOMEN & PELVIS W CONTRAST, 08/07/2017. . TECHNIQUE: Multiple contiguous axial images were obtained through the pelvis without contrast. Imag es were obtained using multiple row detector helical technique. . Using automated exposure control an d adjustment of the mA and/or kV according to patient size, radiation dose was kept as low as reasona neyda achievable to obtain optimal diagnostic quality images. DICOM format image data is available bryson ctronically for review and comparison. FINDINGS: Bowel/Mesentery: The bowel loops are grossly unremarkable. The sigmoid colon has a normal configura tion. Bladder: Contours are smooth. Retroperitoneum: No evidence of deep pelvic adenopathy. Reproductive Organs: No abnormal masses or calcifications seen. Inguinal: The inguinal region is unremarkable without evidence of adenopathy. Bony Structures: Moderate osteoarthritis is noted involving the hips bilaterally (right worse than l eft) and is stable compared to the previous examination in July 2017. Degenerative changes and sc oliosis of the lumbar spine are again noted. CONCLUSION: 1. Moderate osteoarthritis is noted involving the hips bilaterally (right worse than left) and is st able compared to the previous examination in July 2017. 2. Degenerative changes and scoliosis of the lumbar spine are again noted. Electronically signed by: Jose Goldsmith MD Board Certified Radiologist 08/22/2018 2:43 PM EST
--- NOTE | 2018-08-22 16:51 | P.CONNS ---
History of Present Illness Service: Neurosurgeru Consult date: 08/22/18 Reason for Consult: back pain Primary Care Provider: No Primary Care Physician Chief Complaint: Lower extremity pain History of Present Illness: This is a 48-year-old female with a past medical history of arthritis who is presenting to the hospital with back pain and left lower extremity pain. Jovan amezcua has has right lower extremity pain because she needs to have her right hip replaced. She says over the past 2 weeks she has developed pain in her left lower extremity. She describes it as a burning sensation in her left leg that goes from the groin to the knee along the inside of her leg. She describes the pain as throbbing and also sharp and stabbing. She says moving around and doing activities. She says sometimes laying down on the right side makes the pain better. She came to the emergency department last Monday and took her pain medications, which did not help. She says the day before yesterday she started to experience numbness along the inner portion of her left lower extremity in the thigh and knee area. She has never had any similar episodes in the past involving her lower extremities. She says a few years ago she did have a condition where she could not move her right upper extremity for 3 days and that was supposedly secondary to severe arthritis. MRI lumbar spine was done. neurosurgery consultation was requested. Review of Systems All other systems reviewed negative except as stated in HPI PMFSH - History History Provided By: Patient - Medical History Medical History: Medical History (Last Reviewed 08/22/18 @ 16:36 by Juan Woods MD) Benign skin tumor Gastritis Osteoarthritis Smoking history - Surgical History Surgical History: Surgical History (Last Reviewed 08/22/18 @ 16:36 by Juan Woods MD) Previous section - Family History Family History: Family History (Last Reviewed 08/22/18 @ 16:36 by Juan Woods MD) Other Dementia - Tobacco History Second Hand Smoke Exposure: Yes Tobacco Use In Past 30 Days: Yes Smoking Status: Current every day smoker Tobacco Type: Cigarettes - Alcohol History How Often Do You Have a Drink Containing Alcohol: 2 to 4 times a month - Substance Use History Substance History: No History of Abuse - Travel History Recent Travel in the [place] Within the Last 8 Weeks: No Recent Travel Out of the Country Within the Last 8 Weeks: No - Immunization History Tetanus Immunization: Unsure Medications and Allergies Active Medications: Active Medications Acetaminophen (Tylenol) 650 mg PO Q4H PRN PRN Reason: Temp > 100.4, pain 1-2 Enalaprilat (Vasotec Inj) 1.25 mg IV.PUSH Q6H PRN PRN Reason: SBP> OR = 180, DBP> OR = 100 Morphine Sulfate (Morphine Inj) 4 mg IV.PUSH Q4H PRN PRN Reason: BREAKTHROUGH PAIN Last Admin: 08/22/18 09:49 Dose: 4 mg Nicotine (Habitrol 14 Mg Patch.24 Hr) 1 patch T-DERMAL DAILY [facility] Last Admin: 08/22/18 12:24 Dose: 1 patch Ondansetron HCl (Zofran Inj) 4 mg IV.PUSH Q6H PRN PRN Reason: NAUSEA OR VOMITING Oxycodone/Acetaminophen (Percocet 10/325 Mg) 1 tab PO Q4H PRN PRN Reason: pain 6-10 Last Admin: 08/22/18 07:02 Dose: 1 tab Oxycodone/Acetaminophen (Percocet 5/325 Mg) 1 tab PO Q4H PRN PRN Reason: pain 3-5 Patch Removal (Remove Old Patch) 1 each T-DERMAL DAILY [facility] Senna/Docusate Sodium (Autumn-Colace) 1 tab PO BID [facility] Last Admin: 08/22/18 09:50 Dose: 1 tab Sodium Chloride (Ns Flush) 2 ml IV.FLUSH BID [facility] Last Admin: 08/22/18 09:51 Dose: 2 ml Sodium Chloride (Ns Flush) 2 ml IV.FLUSH PRN PRN PRN Reason: FLUSH AFTER USING IV ACCESS Allergies Allergy/AdvReac Type Severity Reaction Status Date / Time milk Allergy Severe CANT Verified 08/12/18 10:23 BREATHE Exam Vital signs: Vital Signs 08/21/18 17:29 08/21/18 17:30 08/21/18 17:31 Temperature Pulse Rate Respiratory Rate 18 18 18 Blood Pressure Pulse Oximetry 08/21/18 20:00 08/21/18 20:15 08/21/18 21:26 Temperature 98.7 F Pulse Rate 101 H Respiratory Rate 16 16 16 Blood Pressure 112/64 Pulse Oximetry 94 L 08/22/18 00:00 08/22/18 02:40 08/22/18 03:31 Temperature 99.0 F 99.0 F Pulse Rate 99 H 100 H Respiratory Rate 16 16 18 Blood Pressure 104/77 111/78 Pulse Oximetry 95 95 08/22/18 08:00 08/22/18 12:00 Temperature 98.0 F 97.9 F Pulse Rate 86 84 Respiratory Rate 16 16 Blood Pressure 116/80 115/79 Pulse Oximetry 96 96 Intake & Output 08/21/18 08/22/18 08/22/18 18:59 06:59 18:59 Intake Total 960 / 960 Balance 960 / 960 Weight 52.27 kg Intake: Oral 960 / 960 Other: # Voids 4 Weight On Admission 52.27 kg Narrative: The patient is alert, awake. Comfortable, in no acute distress. Speech is fluent. Cranial nerve examination: pupils to be equal, round and reactive to light. Extra-ocular movements are intact. Facial motor and sensory function are normal and symmetrical. Gross hearing appears intact. Sternocleidomastoid and trapezius muscles are symmetrical. Other cranial nerves are intact. Neck is soft and supple with a good range of motion without pain. Muscle strength is normal in all muscle groups of both upper and lower extremities. Sensory examination is intact to light touch and pin prick in both upper extremities, decreased in left inner thigh region. Deep tendon reflexes are symmetrical in both upper and lower extremities. There is a bilateral plantar flexion response. Cerebellar examination is unremarkable, without deficits. Lungs are clear Heart regular rhythm is regular rate Skin warm and dry Results - Laboratory Findings CBC and BMP: 08/22/18 05:26 08/22/18 05:26 Abnormal lab findings: Abnormal Labs 08/21/18 08/21/18 08/21/18 10:38 10:38 15:30 WBC 13.5 H Hgb 15.4 H Neut % (Auto) 77.3 H Neut # (Auto) 10.4 H PT 11.7 H Chloride 108 H BUN Creatinine Estimated GFR Random Glucose AST 08/22/18 08/22/18 05:26 05:26 WBC Hgb Neut % (Auto) 75.7 H Neut # (Auto) PT Chloride BUN 23 H Creatinine 1.02 H Estimated GFR 58 L Random Glucose 146 H AST 9 L Assessment and Plan - Plan I have reviewed the clinical and radiological findings Lumbar Spine CT 08/21/18 09:16 CONCLUSION: 1. Asymmetric disc bulges being worse on the left at the L2-L3 and L3-L4 levels. There is narrowing of the left neural foramina at these levels being more prominent at the L3-L4 level. 2. Mild left lateral recess disc protrusion at the L5-S1 level. 3. Bilateral adrenal gland adenomas. Lumbar Spine MRI 08/21/18 10:18 CONCLUSION: 1. Mild disc bulges at the L2-L3 and L3-L4 levels. 2. Superimposed left neural foraminal disc protrusion at the L3-L4 level causing very prominent narrowing of the left neural foramen and impressing upon the exiting left L3 nerve root. 3. Mild left paracentral to lateral recess disc protrusion at the L5-S1 level. Acute left lower extremity radiculopathy Her MRI showed: Mild disc bulges at the L2-L3 and L3-L4 levels; Superimposed left neural foraminal disc protrusion at the L3-L4 with narrowing of the left neural foramen, zand a mild left paracentral to lateral recess disc protrusion at the L5-S1 level. I have reviewed with her her clinical findings and radiological studies. I have discussed the alternative methods of treatment including, conservative management, pain management by an interventional paintings conservator, or a surgical decompression as a last resort. She has not tried physical therapy nor pain management. She does not have any focal motor deficit or clinical evidence of cauda equine syndrome or foot drop. She understands that a surgical procedure should be a last resort. At this time , and I recommend she continues with non-operative treatment with a tyrial of physical therapy, lifestyle modification, and possibly pain management.. Pain control with analgesics bowel regimen. physical therapy. Leukocytosis Likely s/t recent steroid course. Afebrile at this time. follow CBC. Smoking dependence The pt smokes a pack daily. cessation instruction. Nicotine patch HTN Exacerbated by pain. -pain control. -Vasotec as needed. Pulmonary: aggressive pulmonary toilette, nasotracheal suction, and breathing treatments with nebulizers. Daily PT and OT Renal: Continue to monitor closely urine output, BUN and creatinine Endocrine: Continue to Monitor serial Acu checks and SSI as needed in detail ID continue to monitor for signs of infection Continue Protonix for stress ulcer prophylaxis Osbaldo hose and SCD's for DVT prophylaxis Caprini VTE Risk Assessment Caprini VTE Risk Assessment: Moderate/High Risk (score >= 2) Caprini Risk Assessment Model: Point Value = 1 Point Value = 2 Point Value = 3 Point Value = 5 Age 41-60 Minor surgery BMI > 25 kg/m2 Swollen legs Varicose veins or History of unexplained or recurrent spontaneous Oral contraceptives or hormone replacement Sepsis (< 1 month) Serious lung disease, including pneumonia (< 1 month) Abnormal pulmonary function Acute myocardial infarction Congestive heart failure (< 1 month) History of inflammatory bowel disease Medical patient at bed rest Age 61-74 Arthroscopic surgery Major open surgery (> 45 min) Laparoscopic surgery (> 45 min) Malignancy Confined to bed (> 72 hours) Immobilizing plaster cast Central venous access Age >= 75 History of VTE Family history of VTE Factor V Leiden Prothrombin [id number] Lupus anticoagulant Anticardiolipin antibodies Elevated serum homocysteine Heparin-induced thrombocytopenia Other congenital or acquired thrombophilia Stroke (< 1 month) Elective arthroplasty Hip, pelvis, or leg fracture Acute spinal cord injury (< 1 month) Prophylaxis Regimen: Total Risk Factor Score Risk Level Prophylaxis Regimen 0-1 Low Early ambulation 2 Moderate Order ONE of the following: *Sequential Compression Device (SCD) *Heparin 5000 units SQ BID 3-4 Higher Order ONE of the following medications: *Heparin 5000 units SQ TID *Enoxaparin/Lovenox 40 mg SQ daily (WT < 150 kg, CrCl > 30 mL/min) *Enoxaparin/Lovenox 30 mg SQ daily (WT < 150 kg, CrCl > 10-29 mL/min) *Enoxaparin/Lovenox 30 mg SQ BID (WT < 150 kg, CrCl > 30 mL/min) AND/OR *Sequential Compression Device (SCD) 5 or more Highest Order ONE of the following medications: *Heparin 5000 units SQ TID (Preferred with Epidurals) *Enoxaparin/Lovenox 40 mg SQ daily (WT < 150 kg, CrCl > 30 mL/min) *Enoxaparin/Lovenox 30 mg SQ daily (WT < 150 kg, CrCl > 10-29 mL/min) *Enoxaparin/Lovenox 30 mg SQ BID (WT < 150 kg, CrCl > 30 mL/min) AND *Sequential Compression Device (SCD) Further recommendations will be provided depending on the patient's clinical evaluation and follow up studies.
[2018-08-23] MEDS: oxyCODONE/Acetaminophen 10/325 Tablet PO PRN ×3 (01:28→13:27)
[2018-08-23 07:43] VITALS: RESP 20; O2SAT 95
[2018-08-23] MEDS: Senna/Docusate Sodium 8.6/50 MG Tablet PO SCH (09:23)
[2018-08-23] MEDS: Morphine Inj 4 MG/ML Vial IV.PUSH PRN (09:23)
[2018-08-23 11:17] VITALS: BP 118/67; PULSE 91; TEMP 97.7
--- NOTE | 2018-08-23 11:55 | P.PN ---
Subjective Interval history: awake adn alert discuss with her d/w with orthopedics- Dr. saldana - can be seen as OP seen also with CM- rody- no insurance- paperworks pending in [facility] Patient asssitance cahs been consulted CM will try if we can get a mandatory referral Physical Exam Vital signs: Vital Signs 08/22/18 12:00 08/22/18 16:00 08/22/18 19:57 Temperature 97.9 F 97.8 F 98.6 F Pulse Rate 84 95 H 107 H Respiratory Rate 16 16 17 Blood Pressure 115/79 132/75 106/69 Pulse Oximetry 96 95 95 08/22/18 20:10 08/22/18 22:20 08/22/18 23:45 Temperature 97.8 F Pulse Rate 89 Respiratory Rate 18 16 18 Blood Pressure 107/70 Pulse Oximetry 95 08/23/18 02:19 08/23/18 04:00 08/23/18 06:30 Temperature 98.1 F Pulse Rate 77 Respiratory Rate 16 17 18 Blood Pressure 110/60 Pulse Oximetry 94 L 08/23/18 07:41 08/23/18 11:15 Temperature 96.4 F L 97.7 F Pulse Rate 82 91 H Respiratory Rate 20 20 Blood Pressure 133/83 118/67 Pulse Oximetry 95 95 Intake & Output 08/22/18 08/23/18 08/23/18 18:59 06:59 18:59 Intake Total 960 / 960 Balance 960 / 960 Intake: Oral 960 / 960 Other: # Voids 5 Results - Labs CBC & Chem 7: 08/22/18 05:26 08/22/18 05:26 - Imaging Impressions Pelvis CT 08/22/18 00:00 CONCLUSION: 1. Moderate osteoarthritis is noted involving the hips bilaterally (right worse than left) and is stable compared to the previous examination in July 2017. 2. Degenerative changes and scoliosis of the lumbar spine are again noted. Assessment and Plan - Plan 48 years old increasing difficulty in ambulation- now using a walker back pain with radiculopathy with history chronic hip pain r> l, worsening with chronic hip pain bilatral worsening both condition likely contributing to ambulating difficulties Low back pain with left radiculopathy- with Disc disease L3-4- S/p steroids and pain medication after prior ED visit. MRI showed: Mild disc bulges at the L2-L3 and L3-L4 levels; Superimposed left neural foraminal disc protrusion at the L3-L4 level causing very prominent narrowing of the left neural foramen and impressing upon the exiting left L3 nerve root; Mild left paracentral to lateral recess disc protrusion at the L5-S1 level. -pain control with a bowel regimen. -physical therapy. -neurosurgery consulted-- conservative management with PT- patient no benefits OA Bilateral hip pain R > L- chronic n - states was supposed to have right hip surgery sometime in March scheduled in [place] by Dr. Oneill - severe right OA- "bone to bone"- but a week prior to this- was bitten by a recluse spider and surgery cancelled. - when rescheduled- was told to re submit to insurance for approval - d/w with Orthopedics- OP ff up - Dr. saldana - d/w CM- tif- she is trying to see if we can get an OP mandatory referral PT eval and treat Leukocytosis Likely s/t recent steroid course. Afebrile at this time. -follow CBC. Smoking dependence The pt smokes a pack daily. -cessation instruction. HTN- good readings Exacerbated by pain. -pain control. -Vasotec as needed. seen with CM- see if we cab get patient assistance- refer to [facility]- and then MD there will refer her to Orthopedics as OP get [place] no benefits for PT
== END 2018-08-23 14:28 | disposition home or self-care (01) ==
LOC: NEDA 08:50 → NEPD 08:50 → NEPGCP 17:25
PROVIDERS: ADMIT Internal Medicine; ATTEND Internal Medicine
CPT/HCPCS: 72131; 72148; 72192; 80048; 80053; 84703; 85025; 85610; 85730; 90772; 90774; 90775; 90782; 90784; 96372; 96374; 96375; 96376; 97162; 99285; C8952; G0378; G8987; G8988; J1100; J1885; J2270